=== PATIENT | male | born 1965 | race Caucasian/White ===

== ENCOUNTER 2018-10-13 04:55 | Inpatient (IN) | payer OTHER, SELFPAY ==
[~2018-10-13] VITALS: Ht 177.8 cm; Wt 70.8 kg
[2018-10-13] VITALS (7 sets, daily range): BP systolic 100–113; BP diastolic 17–66
[2018-10-13 05:33] LABS: BASO # 0.1 10^3/uL (0.0-0.2); BASO % 1.3 % (0.0-1.0); EOS # 0.3 10^3/uL (0.0-0.50); EOS % 2.5 % (0.0-3.0); HEMATOCRIT 37.3 % (42.0-52.0); HEMOGLOBIN 12.7 g/dl (13.5-17.5); LYMPH # 1.1 10^3/uL (1.5-4.5); LYMPH % 11.3 % (24.0-44.0); MEAN CORPUSCULAR HEMOGLOBIN 31.1 pg (27.0-33.0); MEAN CORPUSCULAR VOLUME 91.2 fl (80.0-96.0); MONO # 0.6 10^3/uL (0.0-0.8); MONO % 5.9 % (0.0-5.0); NEUTROPHILS # 7.9 10^3/uL (1.8-7.7); NEUTROPHILS % 78.4 % (36.0-66.0); PLATELET COUNT, AUTOMATED 268 10^3/uL (150-450); RED BLOOD COUNT 4.09 10^6/uL (4.30-6.10); WHITE BLOOD COUNT 10.1 10^3/uL (4.0-10.0)
[2018-10-13 05:43] LABS: INR 1.31; PROTHROMBIN TIME 16.5 SECONDS (12.1-14.4)
[2018-10-13 05:44] LABS: PARTIAL THROMBOPLASTIN TIME 35.2 SECONDS (25.4-37.6)
[2018-10-13 05:53] LABS: ALBUMIN 2.7 GM/DL (3.2-5.2); BILIRUBIN,DIRECT 1.2 MG/DL (0.0-0.2); BILIRUBIN,TOTAL 2.3 MG/DL (0.2-1.0); CALCIUM LEVEL 8.9 MG/DL (8.5-10.1); CREATININE FOR GFR 1.53 MG/DL (0.70-1.30); ETHYL ALCOHOL (ETHANOL) 0.004 % (0.000-0.010); GLOMERULAR FILTRATION RATE 50.9 (>56); POTASSIUM SERUM 3.8 MEQ/L (3.5-5.1); TOTAL PROTEIN 9.7 GM/DL (6.4-8.2)
[2018-10-13] MEDS ORDERED: FOLI400T PO (06:25)
[2018-10-13] MEDS ORDERED: B-COTAB25 PO (06:30)
[2018-10-13] MEDS ORDERED: LACT10SO29 PO (06:46)
[2018-10-13] MEDS ORDERED: ISOVUE-370 76% 100ML VIAL (Q9967) As Ordered ONE (08:59)
[2018-10-13] MEDS ORDERED: NS 1,000 ML IV ONE ×2 (09:00→10:45)
[2018-10-13] MEDS ORDERED: MORPHINE 4 MG/ML 1ML VIAL/SYRINGE (J2270) IV ONE (09:00)
[2018-10-13] MEDS: FUROSEMIDE 20 MG TAB PO SCH (09:00)
[2018-10-13] MEDS: SPIRONOLACTONE 50 MG TAB PO SCH (09:00)
[2018-10-13 09:35] LABS: CPK CREATINE PHOSPHOKINASE 178 U/L (39-308); LDH LACTATE DEHYDROGENASE 199 U/L (87-241); MB/CK RELATIVE INDEX 0.96 (< OR =4); TROPONIN I < 0.02 NG/ML (< 0.10)
--- NOTE | 2018-10-13 10:31 | REP ---
CT ABDOMEN AND PELVIS WITH IV CONTRAST: TECHNIQUE: Axial contrast enhanced images from the lung bases to the pubic symphysis using 100 mL Isovue 370 intravenous contrast material with multiplanar reformations. The visualized lung bases demonstrate dependant atelectatic changes. The liver demonstrates a large mass in the left lobe approximately 7 cm in diameter. There is mild splenomegaly. The adrenals and pancreas are grossly unremarkable. Kidneys appear unremarkable. There is no hydronephrosis. There is no abdominal aortic aneurysm. No significant periaortic adenopathy is seen. There is no free air. There is mild diffuse ascites in the abdomen and pelvis. There is an umbilical hernia which contains ab obstructed small bowel loops with moderately dilated small bowel proximally and collapsed small bowel loops distally. There is also a small amount of ascites fluid in the hernia. There is a right inguinal hernia containing ascites fluid with a communicating right hydrocele which is moderate in size. There is diffuse diverticulosis of the colon. Gallstones are seen in a moderately distended gallbladder. I do not see evidence of biliary dilatation. Urinary bladder is grossly unremarkable. There is no evidence of a appendicitis. IMPRESSION: Umbilical hernia contains an obstructed small bowel loop and a small amount of ascites fluid. There is a right inguinal hernia containing ascites fluid with a communicating moderate right hydrocele. Mild diffuse ascites. A liver mass measures 7 cm in maximum diameter, located in the left lobe. Gallstones in a moderately distended gallbladder with no definite biliary dilatation. Electronically Signed by Austin Peter MD 10/13/2018 07:45 P
[2018-10-13 10:35] LABS: MAGNESIUM LEVEL 1.5 MG/DL (1.8-2.4)
[2018-10-13] MEDS ORDERED: ROCURONIUM BROMIDE 50 MG/5 ML VIAL As Ordered ONE (11:32)
[2018-10-13] MEDS ORDERED: LIDOCAINE 2% INJ 100 MG/5 ML SDV (FOR ANES.) As Ordered ONE (11:32)
[2018-10-13] MEDS ORDERED: PROPOFOL 200 MG/20 ML VIAL As Ordered ONE (11:32)
[2018-10-13] MEDS ORDERED: ONDANSETRON 4MG/2ML VIAL (J2405) As Ordered ONE (11:33)
[2018-10-13] MEDS ORDERED: fentaNYL 100 MCG/2 ML INJECTION (J3010) As Ordered ONE (11:33)
[2018-10-13] MEDS ORDERED: dexameTHASONE 4 MG/ML 1ML VIAL (J1100) As Ordered ONE (11:33)
[2018-10-13] MEDS ORDERED: MIDAZOLAM INJ 2 MG/2 ML VIAL (J2250) As Ordered ONE (11:34)
[2018-10-13] MEDS ORDERED: MAG SULF 1GM/100ML (MAG RUN) 1 GM in APPROPRIATE DILUENT 1 EA IV SCH (11:45)
[2018-10-13] MEDS ORDERED: MULTCAP PO (11:47)
[2018-10-13] MEDS ORDERED: SPIR50TA4 PO (11:47)
[2018-10-13] MEDS ORDERED: FURO20TA2 PO (11:47)
[2018-10-13] MEDS ORDERED: FOLI1TAB11 PO (11:47)
--- NOTE | 2018-10-13 12:09 | HPEPDOC ---
[facility] Medical History & Physical History and Physical DATE OF CONSULTATION 10/13/2018 CONSULT FOR: General surgery PCP at [facility] in [facility] REASON FOR CONSULT: Medical management HISTORY OF PRESENT ILLNESS: Patient is a 53-year-old man with a history of known hepatocellular carcinoma with a large left liver lobe mass which is currently undergoing treatment at [facility] in [place]. He also has a known history of alcoholic liver cirrhosis. As well as known to hernias one umbilical and one right inguinal. The patient tells me that he was in his usual state of health living up here in [facility] during the summer when yesterday around 5 PM he began to have significant abdominal pain. Associated with nausea and vomiting no diarrhea no fevers or chills. He tells me that normally when he lies flat hernia disappears however since that time it is not and is actually quite swollen and tender. The patient describes good exercise tolerance no shortness of breath rash-like symptoms with strenuous activity he is very active. Otherwi se patient denies weight loss, hair loss, headache, visual changes, chest pain, shortness of breath, cough, muscle aches, worsening arthritis, change in mood. PAST MEDICAL HISTORY: 1. Hepatocellular carcinoma. 2. Alcoholic liver cirrhosis. 3. History of alcohol abuse 4. Gastroesophageal reflux disease. HOME MEDICATIONS: Please see below. ALLERGIES: Please see below PAST SURGICAL HISTORY: 1. Patient describes what sounds like a Shilpi fundoplication for problems with his GE sphincter one half years ago. 2. Chemoembolization of left liver lobe hepatocellular carcinoma this past July.. SOCIAL HISTORY: Lives with: Alone, Employment: Not currently working, Tobacco use: [id number] history in the past not an active smoker. ETOH: And no alcohol intake for 3 months, Illicit drug use: Denies, Tattoos done unprofessionally: Denies. IV drug use: Denies CODE STATUS: Full code FAMILY HISTORY:Reviewed and noncontributory REVIEW OF SYSTEMS: 10 systems reviewed and negative other than HPI PHYSICAL EXAMINATION: VITAL SIGNS: Temperature 96 7, pulse 79, respiratory rate 16, blood pressure 125/72, pulse oximetry 97 % on room air. GENERAL: Pleasant Slim man laying in bed awake alert oriented speaking in complete sentences no acute distress HEENT: Moist mucous membranes no elevation and CVP CARDIOVASCULAR: S1 S2 regular no additional heart sounds appreciated. RESPIRATORY: Clear to auscultation bilaterally. ABDOMINAL: Bowel sounds diminished, abdomen soft 8 x 6 cm umbilical mass erythematous diffusely tender, and tense EXTREMITIES: No clubbing cyanosis or edema NEUROLOGICAL: Spontaneously moves all 4 extremities cranial 2 through 12 grossly intact no gross focal deficits appreciated PSYCHOLOGICAL: Appropriate LABORATORY DATA: See below. MICROBIOLOGY: Please see below. IMAGING: CT abdomen: Umbilical hernia contains an obstructed small bowel loop and a small amount of ascites fluid. There is a right inguinal hernia containing ascites fluid with a communicating moderate right hydrocele. Mild diffuse ascites. The liver mass measures 7 cm in maximum diameter, located in the left lobe. Gallstones in a moderately distended gallbladder with no definite biliary dilatation. ASSESSMENT & PLAN: 53-year-old man with history of alcoholic liver cirrhosis and hepatocellular carcinoma presenting now with an incarcerated umbilical hernia resulting in small bowel obstruction . PROBLEMS: 1. Incarcerated umbilical hernia resulting in small bowel reduction: The patient has been seen and evaluated by general surgery for planning for operative procedure later today. He is currently nothing by mouth patient has had this hernia for quite some time and is unclear why it is becoming a problem at this point time it could be possible is related to his malignancy however it may not be. Given the urgency of the procedure and his lack of cardiac risk factors see no further testing indicated prior to proceeding with operative procedure. 2.Alcoholic liver cirrhosis: Not actively drinking continue with folic acid thiamine and a multivitamin as able, if he is nothing by mouth he is not exposed medications urgently. We'll monitor fluid status closely for now would hold spi ronolactone and furosemide restarted as needed or as. This is likely etiology for his mildly elevated INR. Today his meld score is 19 indicating 6% estimated 3 month mortality. In July his child schmid is 9B abdominal surgery mehreen- operative mortality 30%. Discriminate factor 17.9 no indication for gl ucocorticoids. 3. Gastroesophageal reflux disease: Recommend IV PPI while nothing by mouth 4.Hepatocellular carcinoma: We'll require outpatient follow-up and he did have chemoembolization approximately 2 months ago the tumor does not appear to have shrunk in size he told me that it was 6 cm at that time today and appears to be 7 cm I suspect he would benefit from oncology referral through [facility] and close follow-up there where he lives 5. Hypomagnesemia: We'll replete IV 6. Abnormal creatinine: I suspect that his acute kidney injury related to his acute presentation, however we have no prior lab values to compare to we'll request records from [facility] DVT PROPHYLAXIS: As per general surgery Thank you for this and did consult will continue to follow along with you closely please call with any specific questions Vital Signs Vital Signs Date Time Temp Pulse Resp B/P (MAP) Pulse Ox O2 Delivery O2 Flow Rate FiO2 10/13/18 11:30 98.2 16 117/75 (89) Room Air 10/13/18 11:25 70 94 Laboratory Data Labs 24H Laboratory Tests 2 10/13/18 05:19: Prothrombin Time 16.5H, Prothromb Time International Ratio 1.31, Activated Partial Thromboplast Time 35.2, Anion Gap 9, Glomerular Filtration Rate 50.9L, Calcium Level 8.9, Aspartate Amino Transf (AST/SGOT) 85H, Alanine Aminotransfer ase (ALT/SGPT) 40, Alkaline Phosphatase 174H, Total Bilirubin 2.3H, Direct Bilirubin 1.2H, Ammonia 38H, Total Protein 9.7H, Albumin 2.7L, Albumin/Globulin Ratio 0.39L, Amylase Level 97, Lipase 319, Ethyl Alcohol Level 0.004 10/13/18 05:20: Immature Granulocyte % (Auto) 0.6, White Blood Count 10.1H, Red Blood Count 4.09L, Hemoglobin 12.7L, Hematocrit 37.3L, Mean Corpuscular Volume 91.2, Mean Corpuscular Hemoglobin 31.1, Mean Corpuscular Hemoglobin Concent 34.0, Red Cell Distribution Width 14.2, Platelet Count 268, Neutrophils (%) (Auto) 78.4H, Lymphocytes (%) (Auto) 11.3L, Monocytes (%) (Auto) 5.9H, Eosinophils (%) (Auto) 2.5, Basophils (%) (Auto) 1.3H, Neutrophils # (Auto) 7.9H, Lymphocytes # (Auto) 1.1L, Monocytes # (Auto) 0.6, Eosinophils # (Auto) 0.3, Basophils # (Auto) 0.1, Nucleated Red Blood Cells % (auto) 0.0 10/13/18 08:54: Magnesium Level 1.5L, Lactate Dehydrogenase 199, Total Creatine Kinase 178, Creatine Kinase MB 2.0, Creatine Kinase MB Relative Index 0.96, Troponin I < 0.02 CBC/BMP Laboratory Tests 10/13/18 05:19 10/13/18 05:20 Red Blood Count 4.09 L, Mean Corpuscular Volume 91.2, Mean Corpuscular Hemoglo bin 31.1, Mean Corpuscular Hemoglobin Concent 34.0, Red Cell Distribution Width 14.2, Neutrophils (%) (Auto) 78.4 H, Lymphocytes (%) (Auto) 11.3 L, Monocytes (%) (Auto) 5.9 H, Eosinophils (%) (Auto) 2.5, Basophils (%) (Auto) 1.3 H, Neutrophils # (Auto) 7.9 H, Lymphocytes # (Auto) 1.1 L, Monocytes # (Auto) 0.6, Eosinophils # (Auto) 0.3, Basophils # (Auto) 0.1 Home Medications Scheduled B1/B2/Niacin/B12/Protease (B-Complex with B-12 Tablet) 1 Each Tablet, 1 TAB PO DAILY Folic Acid (Folic Acid) 1 Mg Tablet, 1 MG PO DAILY Furosemide (Furosemide) 20 Mg Tablet, 40 MG PO DAILY Lactulose (Lactulose) 10 Gm/15 Ml Solution, 30 ML PO BID Multivitamin (Multivitamins) 1 Each Capsule, 1 CAP PO DAILY Spironolactone (Spironolactone) 50 Mg Tablet, 100 MG PO DAILY Allergies Coded Allergies: Penicillins (Verified Allergy, Unknown, 10/13/18) A-FIB/CHADSVASC A-FIB History Current/History of A-Fib/PAF?: CHAGO Williamson MD October 13, 2018 12:09
[2018-10-13] MEDS ORDERED: LevoFLOXacin(LEVAQUIN)500 MG/100 ML BAG (J1956) As Ordered ONE (13:01)
[2018-10-13] MEDS ORDERED: SUGAMMADEX SODIUM 500 MG/5 ML VIAL (BRIDION) As Ordered ONE (14:18)
[2018-10-13] MEDS ORDERED: ONDANSETRON 4MG/2ML VIAL (J2405) IV PRN ×2 (15:00→15:15)
[2018-10-13] MEDS ORDERED: KETOROLAC 30 MG/ML VIAL (J1885) IV PRN (15:00)
[2018-10-13] MEDS ORDERED: fentaNYL 100 MCG/2 ML INJECTION (J3010) IV PRN (15:15)
[2018-10-13] MEDS ORDERED: METOCLOPRAMIDE INJ 10MG/2ML VIAL (J2765) IV PRN (15:15)
[2018-10-13] MEDS ORDERED: MEPERIDINE INJ 25 MG/ML VIAL (J2175) IV PRN (15:15)
[2018-10-13] MEDS ORDERED: LR 1,000 ML IV SCH (15:15)
[2018-10-13] MEDS ORDERED: PERCOCET 5MG/325MG TAB PO PRN (15:15)
[2018-10-13] MEDS ORDERED: PERCOCET 5MG/325MG TAB As Ordered ONE (15:54)
[2018-10-13] MEDS: PERCOCET 5MG/325MG TAB PO PRN ×2 (15:55→21:59)
[2018-10-13] MEDS: LR 1,000 ML IV SCH (16:15)
[2018-10-13] MEDS: FOLIC ACID 1 MG TAB PO SCH (16:52)
[2018-10-13] MEDS: MAG SULF 1GM/100ML (MAG RUN) 1 GM in APPROPRIATE DILUENT 1 EA IV SCH ×2 (16:53→17:49)
[2018-10-13] MEDS: LACTULOSE 20 GM/30 ML SYRUP UD PO SCH (21:22)
[2018-10-13] MEDS: MORPHINE 4 MG/ML 1ML VIAL/SYRINGE (J2270) IV PRN (22:56)
--- NOTE | 2018-10-13 23:37 | ECGEPIP ---
Stationary ECG Study 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
--- NOTE | 2018-10-13 23:41 | ECGEPIP ---
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
[2018-10-14] MEDS: LR 1,000 ML IV SCH ×2 (03:27→14:30)
[2018-10-14 04:00] VITALS: BP 106/61
[2018-10-14 06:06] LABS: BASO % 0.2 % (0.0-1.0); EOS % 0.1 % (0.0-3.0); HEMATOCRIT 30.6 % (42.0-52.0); LYMPH # 0.8 10^3/uL (1.5-4.5); LYMPH % 4.6 % (24.0-44.0); MEAN CORPUSCULAR HEMOGLOBIN 31.5 pg (27.0-33.0); MEAN CORPUSCULAR HGB CONC 33.7 g/dl (32.0-36.5); MEAN CORPUSCULAR VOLUME 93.6 fl (80.0-96.0); MONO # 0.4 10^3/uL (0.0-0.8); MONO % 2.5 % (0.0-5.0); NEUTROPHILS # 14.9 10^3/uL (1.8-7.7); PLATELET COUNT, AUTOMATED 202 10^3/uL (150-450); RED BLOOD COUNT 3.27 10^6/uL (4.30-6.10); WHITE BLOOD COUNT 16.2 10^3/uL (4.0-10.0)
[2018-10-14 06:13] LABS: HEMOGLOBIN 10.3 g/dl (13.5-17.5)
[2018-10-14 06:19] LABS: INR 1.5; PROTHROMBIN TIME 18.4 SECONDS (12.1-14.4)
[2018-10-14 07:51] LABS: ALBUMIN 2.2 GM/DL (3.2-5.2); BILIRUBIN,TOTAL 2.4 MG/DL (0.2-1.0); CALCIUM LEVEL 8.2 MG/DL (8.5-10.1); CREATININE FOR GFR 2.01 MG/DL (0.70-1.30); GLOMERULAR FILTRATION RATE 37.2 (>56); TOTAL PROTEIN 7.4 GM/DL (6.4-8.2)
[2018-10-14 08:00] VITALS: BP 113/59
[2018-10-14] MEDS ORDERED: ACETAMINOPHEN TAB 650MG DOSE (2X325MG) PO PRN (08:00)
--- NOTE | 2018-10-14 08:02 | ROOPDOC ---
[facility] Report Of Operation Report of Operation DATE OF PROCEDURE: 10/13/18 PREPROCEDURE DIAGNOSES: incarcerated umbilical hernia, liver cirrhosis, liver cancer. POSTPROCEDURE DIAGNOSES: Strangulated bowel within an incarcerated umbilical hernia, liver cirrhosis, liver cancer. PROCEDURE: Exploratory laparotomy, small bowel resection with anastomosis, repair of umbilical hernia. SURGEON: Beto Box MD [employer] ARCHITECT: MD Dr. Raul Reddy assisted me during the surgery providing retraction for adequate visualization and was present throughout the whole case ANESTHESIA: General anesthesia. ESTIMATED BLOOD LOSS: Approximately 100 mL. COMPLICATIONS: None patient did relatively well remaining hemodynamically stab le. REMARKS: 53-year-old male with long-standing umbilical hernia previously not deemed a surgical candidate given presence of liver cirrhosis with ascites as well as a liver mass probably hepatocellular carcinoma presents to the emergency room with roughly about 15 hours of incarceration of his umbilical hernia with increasing pain. PROCEDURE NOTE: Purplish ischemic loop of bowel incarcerated within the umbilical hernia. Large amount of serous ascites within the hernia sac as well as within the abdomen. No gross perforation.. DESCRIPTION OF PROCEDURE: Patient was given a dose of levaquin 500 mg IV in the emergency room for p ossibility of bowel strangulation as well as prophylactic antibiotic.. He is brought to the operating room, placed supine on the table. Sequential Compression boots placed on both lower extremities for DVT prophylaxis. A Armstrong catheter placed for urine output monitoring. His abdomen was then prepped and draped widely in usual sterile fashion.We paused for a surgical timeout using both pre-incision safety checklist to verify correct patient, procedure site and additional clinical information prior to beginning the procedure. He has about a 5 cm protrusion of skin around his umbilicus which is tensely distended slightly hyperemic. He is abdomen likewise is moderately distended in appearance. Anesthesia requested attempt at placement of a nasogastric tube to address the bowel obstruction but wasn't able to pass it beyond the throat and was going out through his mouth. I made a vertical incision and compressing the site of the bulging around the umbilicus and a few centimeters below and above this. He slowly got down through to the hernia sac and entering the hernia sac I encountered clear yellow serous fluid draining out. The hernia sac was fully opened exposing a dusky purple loop of small bowel roughly about 8-10 cm in length remaining incarcerated and appearing strangulated on a tight opening of his umbilical hernia. I enlarged the fascial opening able to free up the small bowel and pull some more length. Immediately after the loop of small bowel that is strangulated the bowels were decompressed which points to a complete obstruction at this site. As I opened up the abdomen, I got out roughly about a liter of yellow serous ascites to further decompress his abdominal wall. The incisions were protected with towels. The bowels were aligned beyond the area of obstruction and were held in alignment with 3-0 silk sutures. I made an enterotomy in both sides and created a [id number] anastomosis with a blue load of 75 mm ANNEMARIE linear stapler. The mesentery of the involved bowel was divided in between hemostats and tied off. The enterotomy was then closed with another load of the 75 mm ANNEMARIE stapler fired transversely. The mesenteric defect that was created was closed with a intermittent placement of 2-0 Vicryl. The site of anastomosis seems healthy and the size of the anastomosis seems adequate for his small bowel. I inspected for any bleeding sites or sites that needed to be reinforced. Once satisfied I returned this to the abdomen and further drained a few 100 more ascites. I dissected the peritoneum and posterior fascia to create a flap and closed this with 2-0 Vicryl hoping to prevent leakage of the ascites. I chose not to place a mesh given the need for bowel resection. The subcutaneous tissue overlying the fascial opening was dissected away to release of the tension in the closure of the fascial opening of the hernia and this was closed using one PDS in a mattress fashion. The subcutaneous tissue was irrigated and checked for hemostasis and the skin was closed in layers using 3-0 Vicryl to close the subcutaneous tissue and 4-0 nylon run subcuticularly to close the skin. I chose to place prevena foam dressing with constant suction to help fully drain out any ascites leaking from the incision and allow it to close. Patient tolerated the procedure well. He remained hemodynamically stable throughout the procedure. He was subsequently awakened, extubated and returned to the recovery room in a stable condition. BETO BOX MD October 14, 2018 08:02
[2018-10-14] MEDS: PANTOPRAZOLE 40MG INJ (PROTONIX) (C9113) IV SCH (09:23)
[2018-10-14] MEDS: LACTULOSE 20 GM/30 ML SYRUP UD PO SCH ×2 (09:23→19:38)
[2018-10-14] MEDS: SPIRONOLACTONE 50 MG TAB PO SCH (09:24)
[2018-10-14] MEDS: FUROSEMIDE 20 MG TAB PO SCH (09:24)
[2018-10-14] MEDS: PERCOCET 5MG/325MG TAB PO PRN ×3 (09:25→19:48)
[2018-10-14] MEDS: ENOXAPARIN 40 MG/0.4 ML SYRINGE (J1650) SC SCH (09:25)
[2018-10-14] MEDS: FOLIC ACID 1 MG TAB PO SCH (09:25)
--- NOTE | 2018-10-14 10:26 | IPNPDOC ---
Subjective Date Seen The patient was seen on 10/14/18. Subjective Chief Complaint/HPI Bed at the surgical site. No other complaints General: Denies: ROS Unobtainable, Chills, Night Sweats, Fatigue, Malaise, No rmal Appetite, Other Symptoms Constitutional: Denies: Chills, Fever, Malaise, Night Sweats, Weakness, Fatigue, Weight Loss, Lethargy, Other Eyes: Denies: Pain, Vision change, Conjunctivae inflammation, Eyelid inflammation, Redness, Other ENT: Denies: Head Aches, Ear Pain, Dysphagia, Sinus Congestion, Post Nasal Drip, Sore Throat, Epistaxis, Other Symptoms Skin: Denies: Rash, Lesions, Jaundice, Bruising, Itching, Dry, Breakdown, Nail Changes, Other Pulmonary: Denies: Dyspnea, Cough, Pleuritic Chest Pain, Other Symptoms Cardiovascular: Denies: Chest Pain, Palpitations, Orthopnea, Paroxysmal Noc. Dyspnea, Edema, Lt Headedness, Other Symptoms Gastrointestinal: Denies: Nausea, Vomiting, Abdominal Pain, Diarrhea, Constipation, Melena, Hematochezia, Other Symptoms Genitourinary: Denies: Dysuria, Frequency, Incontinence, Hematuria, Retention, Other Symptoms Hematologic: Denies: Bruising, Bleeding Excessively, Petecchia, Purpura, Enlarged Lymph Nodes, Other Hematologic Endocrine: Denies: Polydipsia, Polyphagia, Polyuria, Heat Intolerance, Cold Intolerance, Other Endocrine Sx Musculoskeletal: Denies: Neck Pain, Back Pain, Shoulder Pain, Arm Pain, Hand Pain, Leg Pain, Foot Pain, Joint Pain, Muscle Pain, Spasms, Other Symptoms Neurological: Denies: Weakness, Numbness, Incoordination, Change in speech, Confusion, Seizures, Other Symptoms Psych: Denies: Mood Normal, Anxiety, Depression, Memory Issues, Thoughts of Self Harm, Anger, Thoughts of Harming Other, Other Psych Objective Physical Examination General Exam: Positive: Alert Eye Exam: Positive: Conjunctiva & lids normal ENT Exam: Positive: Atraumatic, Mucous membr. moist/pink Neck Exam: Positive: Supple Chest Exam: Positive: Clear to auscultation, Normal air movement Heart Exam: Positive: Rate Normal, Normal S1, Normal S2 Abdomen Exam: Positive: Normal bowel sounds Skin Exam: Positive: Nl turgor and temperature Neuro Exam: Positive: Normal Gait, Normal Speech Psych Exam: Positive: Mental status NL A-FIB/CHADSVASC A-FIB History Current/History of A-Fib/PAF?: No Assessment /Plan Problems (1) Strangulated hernia of abdominal wall Problem Text: Status post resection of the ischemic herniated Followed by Dr. Good appreciated Pain management PT, OT eval diet as per surgery Plan/VTE VTE Prophylaxis Ordered?: Yes VS, I&O, 24H, Fishbone Vital Signs/I&O Vital Signs Date Time Temp Pulse Resp B/P (MAP) Pulse Ox O2 Delivery O2 Flow Rate FiO2 10/14/18 09:25 18 10/14/18 08:00 101.0 10/14/18 04:00 80 106/61 (76) 94 10/13/18 20:00 2.0 10/13/18 11:30 Room Air I&O- Last 24 Hours up to 6 AM 10/14/18 05:59 Intake Total 2750 ml Output Total 350 ml Balance 2400 ml Laboratory Data 24H LABS Laboratory Tests 2 10/13/18 12:26: Urine Color YELLOW, Urine Appearance CLEAR, Urine pH 5.0, Urine Specific [place] 1.028, Urine Protein 1+H, Urine Glucose (UA) NEGATIVE, Urine Ketones NEGATIVE, Urine Blood 3+H, Urine Nitrite NEGATIVE, Urine Bilirubin NEGATIVE, Urine Urobilinogen 2.0H, Urine Leukocyte Esterase NEGATIVE, Urine WBC (Auto) 4H, Urine RBC (Auto) 51H, Urine Hyaline Casts (Auto) 0, Urine Bacteria (Auto) NEGATIVE, Urine Squamous Epithelial Cells 0, Urine Amorphous Sediment SMALLH, Urine Sperm (Auto) 10/14/18 05:19: Immature Granulocyte % (Auto) 0.6, White Blood Count 16.2H, Red Blood Count 3.27L, Hemoglobin 10.3#L, Hematocrit 30.6L, Mean Corpuscular Volume 93.6, Mean Corpuscular Hemoglobin 31.5, Mean Corpuscular Hemoglobin Concent 33.7, Red Cell Distribution Width 14.4, Platelet Count 202, Neutrophils (%) (Auto) 92.0H, Lymphocytes (%) (Auto) 4.6L, Monocytes (%) (Auto) 2.5, Eosinophils (%) (Auto) 0.1, Basophils (%) (Auto) 0.2, Neutrophils # (Auto) 14.9H, Lymphocytes # (Auto) 0.8L, Monocytes # (Auto) 0.4, Eosinophils # (Auto) 0.0, Basophils # (Auto) 0.0, Nucleated Red Blood Cells % (auto) 0.0, Prothrombin Time 18.4H, Prothromb Time International Ratio 1.50, Anion Gap 11, Glomerular Filtration Rate 37.2L, Blood Urea Nitrogen 27H, Creatinine 2.01H, Sodium Level 135L, Potassium Level 4.0, Chloride Level 101, Carbon Dioxide Level 23, Calcium Level 8.2L, Aspartate Amino Transf (AST/SGOT) 57H, Alanine Aminotransferase (ALT/SGPT) 32, Alkaline Phosphatase 110, Total Bilirubin 2.4H, Total Protein 7.4#, Albumin 2.2L, Ammonia 86H, Albumin/Globulin Ratio 0.42L CBC/BMP Laboratory Tests 10/14/18 05:19 Red Blood Count 3.27 L, Mean Corpuscular Volume 93.6, Mean Corpuscular Hemoglobin 31.5, Mean Corpuscular Hemoglobin Concent 33.7, Red Cell Distribution Width 14.4, Neutrophils (%) (Auto) 92.0 H, Lymphocytes (%) (Auto) 4.6 L, Monocytes (%) (Auto) 2.5, Eosinophils (%) (Auto) 0.1, Basophils (%) (Auto) 0.2, Neutrophils # (Auto) 14.9 H, Lymphocytes # (Auto) 0.8 L, Monocytes # (Auto) 0.4, Eosinophils # (Auto) 0.0, Basophils # (Auto) 0.0, Calcium Level 8.2 L, Aspartate Amino Transf (AST/SGOT) 57 H, Alanine Aminotransferase (ALT/SGPT) 32, Alkaline Phosphatase 110, Total Bilirubin 2.4 H, Total Protein 7.4 #, Albumin 2.2 L TONY LEYVA MD October 14, 2018 10:26
[2018-10-14 12:00] VITALS: BP 102/58
[2018-10-14 16:00] VITALS: BP 110/65
[2018-10-14] MEDS: MORPHINE 4 MG/ML 1ML VIAL/SYRINGE (J2270) IV PRN ×2 (17:30→23:42)
[2018-10-14 23:59] VITALS: BP 96/54
[2018-10-15] MEDS: LR 1,000 ML IV SCH (00:41)
[2018-10-15 04:00] VITALS: BP 100/58
[2018-10-15] MEDS: PERCOCET 5MG/325MG TAB PO PRN ×2 (05:31→18:26)
[2018-10-15 05:41] LABS: BASO # 0.1 10^3/uL (0.0-0.2); BASO % 0.4 % (0.0-1.0); EOS # 0.3 10^3/uL (0.0-0.50); HEMATOCRIT 29.5 % (42.0-52.0); HEMOGLOBIN 9.9 g/dl (13.5-17.5); LYMPH % 7.2 % (24.0-44.0); MEAN CORPUSCULAR HEMOGLOBIN 30.7 pg (27.0-33.0); MEAN CORPUSCULAR HGB CONC 33.6 g/dl (32.0-36.5); MEAN CORPUSCULAR VOLUME 91.3 fl (80.0-96.0); MONO # 1.1 10^3/uL (0.0-0.8); MONO % 7.4 % (0.0-5.0); NEUTROPHILS # 11.8 10^3/uL (1.8-7.7); NEUTROPHILS % 82.4 % (36.0-66.0); PLATELET COUNT, AUTOMATED 167 10^3/uL (150-450); RED BLOOD COUNT 3.23 10^6/uL (4.30-6.10); WHITE BLOOD COUNT 14.3 10^3/uL (4.0-10.0)
[2018-10-15 06:05] LABS: ALBUMIN 2.1 GM/DL (3.2-5.2); BILIRUBIN,TOTAL 1.8 MG/DL (0.2-1.0); CALCIUM LEVEL 7.8 MG/DL (8.5-10.1); CREATININE FOR GFR 2.53 MG/DL (0.70-1.30); GLOMERULAR FILTRATION RATE 28.5 (>56); POTASSIUM SERUM 4.2 MEQ/L (3.5-5.1); TOTAL PROTEIN 7.2 GM/DL (6.4-8.2)
[2018-10-15 07:40] VITALS: BP 146/72
[2018-10-15 08:01] VITALS: BP 146/72
[2018-10-15] MEDS: PANTOPRAZOLE 40MG INJ (PROTONIX) (C9113) IV SCH (08:50)
[2018-10-15] MEDS: ENOXAPARIN 40 MG/0.4 ML SYRINGE (J1650) SC SCH (08:50)
[2018-10-15] MEDS: LACTULOSE 20 GM/30 ML SYRUP UD PO SCH ×2 (08:50→20:15)
[2018-10-15] MEDS: MORPHINE 4 MG/ML 1ML VIAL/SYRINGE (J2270) IV PRN ×2 (08:51→23:14)
[2018-10-15] MEDS: SPIRONOLACTONE 50 MG TAB PO SCH (08:52)
[2018-10-15] MEDS: FOLIC ACID 1 MG TAB PO SCH (08:52)
--- NOTE | 2018-10-15 10:26 | IPNPDOC ---
Subjective Date Seen The patient was seen on 10/15/18. Subjective Chief Complaint/HPI Patient is comfortable and offers no new complaints at the present time General: Denies: ROS Unobtainable, Chills, Night Sweats, Fatigue, Malaise, Normal Appetite, Other Symptoms Constitutional: Denies: Chills, Fever, Malaise, Night Sweats, Weakness, Fatigue, Weight Loss, Lethargy, Other Eyes: Denies: Pain, Vision change, Conjunctivae inflammation, Eyelid inflammation, Redness, Other ENT: Denies: Head Aches, Ear Pain, Dysphagia, Sinus Congestion, Post Nasal Drip, Sore Throat, Epistaxis, Other Symptoms Skin: Denies: Rash, Lesions, Jaundice, Bruising, Itching, Dry, Breakdown, Nail Changes, Other Pulmonary: Denies: Dyspnea, Cough, Pleuritic Chest Pain, Other Symptoms Cardiovascular: Denies: Chest Pain, Palpitations, Orthopnea, Paroxysmal Noc. Dyspnea, Edema, Lt Headedness, Other Symptoms Gastrointestinal: Denies: Nausea, Vomiting, Abdominal Pain, Diarrhea, Con stipation, Melena, Hematochezia, Other Symptoms Genitourinary: Denies: Dysuria, Frequency, Incontinence, Hematuria, Retention, Other Symptoms Hematologic: Denies: Bruising, Bleeding Excessively, Petecchia, Purpura, Enlarged Lymph Nodes, Other Hematologic Endocrine: Denies: Polydipsia, Polyphagia, Polyuria, Heat Intolerance, Cold Int olerance, Other Endocrine Sx Musculoskeletal: Denies: Neck Pain, Back Pain, Shoulder Pain, Arm Pain, Hand Pain, Leg Pain, Foot Pain, Joint Pain, Muscle Pain, Spasms, Other Symptoms Neurological: Denies: Weakness, Numbness, Incoordination, Change in speech, Confusion, Seizures, Other Symptoms Objective Physical Examination General Exam: Positive: Alert Eye Exam: Positive: Conjunctiva & lids normal ENT Exam: Positive: Atraumatic, Mucous membr. moist/pink Neck Exam: Positive: Supple Chest Exam: Positive: Clear to auscultation, Normal air movement Heart Exam: Positive: Rate Normal, Normal S1, Normal S2 Abdomen Exam: Positive: Normal bowel sounds Skin Exam: Positive: Nl turgor and temperature Neuro Exam: Positive: Normal Gait, Normal Speech Psych Exam: Positive: Mental status NL A-FIB/CHADSVASC A-FIB History Current/History of A-Fib/PAF?: No Assessment /Plan Problems (1) Strangulated hernia of abdominal wall Status: Resolved Problem Text: Status post resection of the ischemic herniated Followed by Dr. Good appreciated Pain management tolerating oral feeding PT, OT eval (2) BRET (acute kidney injury) Status: Acute Problem Text: Discontinue Toradol Decrease Lasix to 20 mg by mouth daily Continue IV fluids but change fluids to normal saline 800 mL per hour Repeat labs in a.m. Possible discharge in a.m. if cleared by surgery Plan/VTE VTE Prophylaxis Ordered?: Yes VS, I&O, 24H, Fishbone Vital Signs/I&O Vital Signs Date Time Temp Pulse Resp B/P (MAP) Pulse Ox O2 Delivery O2 Flow Rate FiO2 10/15/18 08:51 18 10/15/18 08:08 99.7 10/15/18 08:01 10/13/18 20:00 2.0 10/13/18 11:30 Room Air I&O- Last 24 Hours up to 6 AM 10/15/18 06:00 Intake Total 1850 ml Output Total 200 ml Balance 1650 ml Laboratory Data 24H LABS Laboratory Tests 2 10/15/18 05:25: Immature Granulocyte % (Auto) 0.6, White Blood Count 14.3H, Red Blood Count 3.23L, Hemoglobin 9.9L, Hematocrit 29.5L, Mean Corpuscular Volume 91.3, Mean Corpuscular Hemoglobin 30.7, Mean Corpuscular Hemoglobin Concent 33.6, Red Cell Distribution Width 14.4, Platelet Count 167, Neutrophils (%) (Auto) 82.4H, Lymphocytes (%) (Auto) 7.2L, Monocytes (%) (Auto) 7.4H, Eosinophils (%) (Auto) 2.0, Basophils (%) (Auto) 0.4, Neutrophils # (Auto) 11.8H, Lymphocytes # (Auto) 1.0L, Monocytes # (Auto) 1.1H, Eosinophils # (Auto) 0.3, Basophils # (Auto) 0.1, Nucleated Red Blood Cells % (auto) 0.0, Anion Gap 7L, Glomerular Filtration Rate 28.5L, Blood Urea Nitrogen 41#H, Creatinine 2.53H, Sodium Level 133L, Potassium Level 4.2, Chloride Level 101, Carbon Dioxide Level 25, Calcium Level 7.8L, Aspartate Amino Transf (AST/SGOT) 56H, Alanine Aminotransferase (ALT/SGPT) 29, Alkaline Phosphatase 106, Total Bilirubin 1.8H, Total Protein 7.2, Albumin 2.1L, Albumin/Globulin Ratio 0.41L CBC/BMP Laboratory Tests 10/15/18 05:25 Red Blood Count 3.23 L, Mean Corpuscular Volume 91.3, Mean Corpuscular Hemoglobin 30.7, Mean Corpuscular Hemoglobin Concent 33.6, Red Cell Distribution Width 14.4, Neutrophils (%) (Auto) 82.4 H, Lymphocytes (%) (Auto) 7.2 L, Monocytes (%) (Auto) 7.4 H, Eosinophils (%) (Auto) 2.0, Basophils (%) (Auto) 0.4, Neutrophils # (Auto) 11.8 H, Lymphocytes # (Auto) 1.0 L, Monocytes # (Auto) 1.1 H, Eosinophils # (Auto) 0.3, Basophils # (Auto) 0.1, Calcium Level 7.8 L, Aspartate Amino Transf (AST/SGOT) 56 H, Alanine Aminotransferase (ALT/SGPT) 29, Alkaline Phosphatase 106, Total Bilirubin 1.8 H, Total Protein 7.2, Albumin 2.1 L TONY LEYVA MD October 15, 2018 10:25
[2018-10-15] MEDS: FUROSEMIDE 20 MG TAB PO SCH (10:41)
[2018-10-15] MEDS: NS 1,000 ML IV SCH ×2 (10:42→20:15)
--- NOTE | 2018-10-15 11:20 | IPNPDOC ---
Subjective General Date/Time Seen The patient was seen on 10/15/18 at 11:12. Subject Chief Complaint/History The patient is a 53-year-old male admitted with a reason for visit of Incarcerated Umbilical Hernia. Patient reports he is feeling better, hungry. He is tolerating soft diet. Reports BMs. Had another febrile episode this am with chills. Denies abdominal discomfort, chest discomfort, shortness of breath. Current Medications Current Medications Current Medications Acetaminophen (Tylenol Tab) 650 mg Q4HP PRN PO PAIN OR FEVER; Start 10/14/18 at 08:00 Enoxaparin Sodium (Lovenox) 40 mg DAILY SC Last administered on 10/15/18at 08:50; Start 10/14/18 at 09:00 Fentanyl Citrate (Sublimaze) 25 mcg Q5MP PRN IV MODERATE PAIN (PS 4-7); Start 10/13/18 at 15:15; Stop 10/13/18 at 16:15; Status DC Folic Acid (Folic Acid) 1 mg DAILY PO Last administered on 10/15/18at 08:52; Start 10/13/18 at 09:00 Furosemide (Lasix) 20 mg DAILY PO Last administered on 10/15/18at 10:41; Start 10/15/18 at 09:00 Furosemide (Lasix) 40 mg DAILY PO Last administered on 10/14/18at 09:24; Start 10/13/18 at 09:00; Stop 10/15/18 at 10:17; Status DC Home Med (Med Rec Complete!) ASDIRECTED XX ; Start 10/13/18 at 12:00; Stop 10/13/18 at 12:00; Status DC Ketorolac Tromethamine (ToRADol) 30 mg Q6HP PRN IV MILD/MODERATE PAIN (PS 1-7) Last administered on 10/13/18at 19:27; Start 10/13/18 at 15:00; Stop 10/15/18 at 10:15; Status DC Lactated Ringer's 1,000 ml @ 100 mls/hr Q10H IV Last administered on 10/15/18at 00:41; Start 10/13/18 at 14:48; Stop 10/15/18 at 10:16; Status DC Lactated Ringer's 1,000 ml @ 100 mls/hr Q10H IV ; Start 10/13/18 at 15:15; Stop 10/13/18 at 16:15; Status DC Lactulose (Cephulac) 30 ml BID PO Last administered on 10/15/18at 08:50; Start 10/13/18 at 21:00 Magnesium Sulfate/ Dextrose 1 gm/IV Miscellaneous Supplies 100 ml @ 100 mls/hr ASDIRECTED IV ; Start 10/13/18 at 11:45; Stop 10/13/18 at 12:44; Status Cancel Magnesium Sulfate/ Dextrose 1 gm/IV Miscellaneous Supplies 100 ml @ 100 mls/hr Q1H IV Last administered on 10/13/18at 17:49; Start 10/13/18 at 14:15; Stop 10/13/18 at 16:14; Status DC Meperidine HCl (Demerol) 12.5 mg Q5MP PRN IV SHIVERING; Start 10/13/18 at 15:15; Stop 10/13/18 at 16:15; Status DC Metoclopramide HCl (REGLAN INJection) 10 mg Q6HP PRN IV NAUSEA OR VOMITING; Start 10/13/18 at 15:15; Stop 10/13/18 at 16:15; Status DC Morphine Sulfate (Morphine Sulfate Inj) 4 mg Q2HP PRN IV SEVERE PAIN (PS 8-10) Last administered on 10/15/18at 08:51; Start 10/13/18 at 15:00 Ondansetron HCl (ZOFRAN INJection) 4 mg Q4HP PRN IV NAUSEA OR VOMITING; Start 10/13/18 at 15:15; Stop 10/13/18 at 16:15; Status DC Ondansetron HCl (ZOFRAN INJection) 4 mg Q6HP PRN IV NAUSEA OR VOMITING; Start 10/13/18 at 15:00 Oxycodone/ Acetaminophen (Percocet 5mg/ 325mg Tablet) 1 tab ASDIRECTED PRN PO MILD/MODERATE PAIN (PS 1-7); Start 10/13/18 at 15:15; Stop 10/13/18 at 16:15; Status DC Oxycodone/ Acetaminophen (Percocet 5mg/ 325mg Tablet) 1 tab Q4HP PRN PO MODERATE PAIN (PS 5-7) Last administered on 10/13/18at 21:59; Start 10/13/18 at 1 5:00 Oxycodone/ Acetaminophen (Percocet 5mg/ 325mg Tablet) 2 tab Q6HP PRN PO SEVERE PAIN (PS 8-10) Last administered on 10/15/18at 05:31; Start 10/13/18 at 15:00 Pantoprazole Sodium (Protonix) 40 mg DAILY IV Last administered on 10/15/18 08:50; Start 10/14/18 at 09:00 Sodium Chloride 1,000 ml @ 100 mls/hr Q10H IV Last administered on 10/15/18at 10:42; Start 10/15/18 at 10:15 Spironolactone (Aldactone) 100 mg DAILY PO Last administered on 10/15/18 08:52; Start 10/13/18 at 09:00 Allergies Coded Allergies: Penicillins (Verified Allergy, Unknown, 10/13/18) Objective Physical Examination Examination GENERAL APPEARANCE:looks very comfortable. SKIN: Warm and moist. HEENT: Normocephalic, atraumatic. [place] palpebral conjunctiva, anicteric sclerae. Lips and mucosa appear moist. NECK: Supple, no thyromegaly. No obvious jugular venous distention. LUNGS: Clear to auscultation bilaterally. No wheezing appreciated. HEART: No chest wall abnormalities. Regular rate and rhythm with no murmurs appreciated. ABDOMEN: Abdomen is round, soft, increasing abdominal girth, nontender on palpation. prevena dressing on top of umbilical incision functioning - no noticeable drainage. EXTREMITIES: mild le edema. Vital Signs Vital Signs Date Time Temp Pulse Resp B/P (MAP) Pulse Ox O2 Delivery O2 Flow Rate FiO2 10/15/18 09:01 16 10/15/18 08:08 99.7 10/15/18 08:01 10/13/18 20:00 2.0 10/13/18 11:30 Room Air I&Os I&O- Last 24 Hours up to 6 AM 10/15/18 06:00 Intake Total 1850 ml Output Total 200 ml Balance 1650 ml Laboratory Data Labs 24H Laboratory Tests 2 10/15/18 05:25: Immature Granulocyte % (Auto) 0.6, White Blood Count 14.3H, Red Blood Count 3.23L, Hemoglobin 9.9L, Hematocrit 29.5L, Mean Corpuscular Volume 91.3, Mean Corpuscular Hemoglobin 30.7, Mean Corpuscular Hemoglobin Concent 33.6, Red Cell Distribution Width 14.4, Platelet Count 167, Neutrophils (%) (Auto) 82.4H, Lymphocytes (%) (Auto) 7.2L, Monocytes (%) (Auto) 7.4H, Eosinophils (%) (Auto) 2.0, Basophils (%) (Auto) 0.4, Neutrophils # (Auto) 11.8H, Lymphocytes # (Auto) 1.0L, Monocytes # (Auto) 1.1H, Eosinophils # (Auto) 0.3, Basophils # (Auto) 0.1, Nucleated Red Blood Cells % (auto) 0.0, Anion Gap 7L, Glomerular Filtration Rate 28.5L, Blood Urea Nitrogen 41#H, Creatinine 2.53H, Sodium Level 133L, Potassium Level 4.2, Chloride Level 101, Carbon Dioxide Level 25, Calcium Level 7.8L, Aspartate Amino Transf (AST/SGOT) 56H, Alanine Aminotransferase (ALT/SGPT) 29, Alkaline Phosphatase 106, Total Bilirubin 1.8H, Total Protein 7.2, Albumin 2.1L, Albumin/Globulin Ratio 0.41L CBC/BMP Laboratory Tests 10/15/18 05:25 Red Blood Count 3.23 L, Mean Corpuscular Volume 91.3, Mean Corpuscular Hemoglobin 30.7, Mean Corpuscular Hemoglobin Concent 33.6, Red Cell Distribution Width 14.4, Neutrophils (%) (Auto) 82.4 H, Lymphocytes (%) (Auto) 7.2 L, Monocytes (%) (Auto) 7.4 H, Eosinophils (%) (Auto) 2.0, Basophils (%) (Auto) 0 .4, Neutrophils # (Auto) 11.8 H, Lymphocytes # (Auto) 1.0 L, Monocytes # (Auto) 1.1 H, Eosinophils # (Auto) 0.3, Basophils # (Auto) 0.1, Calcium Level 7.8 L, Aspartate Amino Transf (AST/SGOT) 56 H, Alanine Aminotransferase (ALT/SGPT) 29, Alkaline Phosphatase 106, Total Bilirubin 1.8 H, Total Protein 7.2, Albumin 2.1 L Impression POD2 Stangulated umbilical hernia s/p bowel resection, primary repair of hernia liver cirrhosis with ascites liver mass (?HCC) elevated BUN/Cr from admission, nonoliguric ARF from surgical standpoint, over all doing well. Patient moving his bowels, denies any severe abdominal discomfort, nausea and has been moving his bowels. Advance to regular diet. He has prevena dressing to help accelerate skin closure and avoid ascites leak - so far not much leakage . he will continue with the current dressing until battery runs out or until 10 days after Three concerns at this point: 1. renal function in background of liver problems - meds have been adjusted by Dr. Herrera. 2. increasing abdominal girth -?increasing ascites - may need paracentesis. 3. intermittent febrile episodes - no signs of peritonitis. wbc trending down. continue with current antibiotics Continue DVT prophylaxis transfer to regular floors Plan / VTE VTE Prophylaxis Ordered?: Yes CLAUDIA RODRÍGUEZ MD October 15, 2018 11:20
[2018-10-15] MEDS ORDERED: HYDROCORTISONE 0.5% CREAM 30 GM TOP PRN (12:30)
[2018-10-15 16:40] VITALS: BP 140/72
[2018-10-15 20:00] VITALS: BP 122/61
[2018-10-15 23:59] VITALS: BP 132/79
[2018-10-16 05:03] LABS: BASO # 0.1 10^3/uL (0.0-0.2); BASO % 0.6 % (0.0-1.0); EOS # 0.4 10^3/uL (0.0-0.50); EOS % 4.1 % (0.0-3.0); HEMATOCRIT 28.1 % (42.0-52.0); HEMOGLOBIN 9.9 g/dl (13.5-17.5); LYMPH # 1.1 10^3/uL (1.5-4.5); LYMPH % 10.2 % (24.0-44.0); MEAN CORPUSCULAR HEMOGLOBIN 32.6 pg (27.0-33.0); MEAN CORPUSCULAR HGB CONC 35.2 g/dl (32.0-36.5); MEAN CORPUSCULAR VOLUME 92.4 fl (80.0-96.0); MONO # 1.2 10^3/uL (0.0-0.8); MONO % 11.3 % (0.0-5.0); NEUTROPHILS # 7.8 10^3/uL (1.8-7.7); NEUTROPHILS % 73.2 % (36.0-66.0); PLATELET COUNT, AUTOMATED 152 10^3/uL (150-450); RED BLOOD COUNT 3.04 10^6/uL (4.30-6.10); WHITE BLOOD COUNT 10.6 10^3/uL (4.0-10.0)
[2018-10-16 05:29] LABS: ALBUMIN 2.1 GM/DL (3.2-5.2); BILIRUBIN,TOTAL 1.9 MG/DL (0.2-1.0); CALCIUM LEVEL 7.7 MG/DL (8.5-10.1); CREATININE FOR GFR 2.62 MG/DL (0.70-1.30); GLOMERULAR FILTRATION RATE 27.4 (>56); POTASSIUM SERUM 4.2 MEQ/L (3.5-5.1); TOTAL PROTEIN 6.9 GM/DL (6.4-8.2)
[2018-10-16] MEDS: NS 1,000 ML IV SCH ×2 (06:23→15:23)
[2018-10-16 08:00] VITALS: BP 110/69
[2018-10-16] MEDS: LACTULOSE 20 GM/30 ML SYRUP UD PO SCH ×2 (08:18→20:25)
[2018-10-16] MEDS: ENOXAPARIN 40 MG/0.4 ML SYRINGE (J1650) SC SCH ×2 (08:18→08:29)
[2018-10-16] MEDS: FOLIC ACID 1 MG TAB PO SCH (08:19)
[2018-10-16] MEDS: FUROSEMIDE 20 MG TAB PO SCH (08:19)
[2018-10-16] MEDS: SPIRONOLACTONE 50 MG TAB PO SCH (08:19)
[2018-10-16 09:05] LABS: INR 1.38; PROTHROMBIN TIME 17.2 SECONDS (12.1-14.4)
[2018-10-16 09:10] VITALS: BP 125/77
--- NOTE | 2018-10-16 11:45 | IPNPDOC ---
Subjective Date Seen The patient was seen on 10/16/18. Subjective Chief Complaint/HPI Offers no new complaints at the present time. Renal function is still not improving and also noticed some ascites General: Denies: ROS Unobtainable, Chills, Night Sweats, Fatigue, Malaise, Normal Appetite, Other Symptoms Constitutional: Denies: Chills, Fever, Malaise, Night Sweats, Weakness, Fatigue, Weight Loss, Lethargy, Other Eyes: Denies: Pain, Vision change, Conjunctivae inflammation, Eyelid inflammation, Redness, Other ENT: Denies: Head Aches, Ear Pain, Dysphagia, Sinus Congestion, Post Nasal Drip, Sore Throat, Epistaxis, Other Symptoms Skin: Denies: Rash, Lesions, Jaundice, Bruising, Itching, Dry, Breakdown, Nail Changes, Other Pulmonary: Denies: Dyspnea, Cough, Pleuritic Chest Pain, Other Symptoms Cardiovascular: Denies: Chest Pain, Palpitations, Orthopnea, Paroxysmal Noc. Dyspnea, Edema, Lt Headedness, Other Symptoms Gastrointestinal: Reports: Other Symptoms Genitourinary: Denies: Dysuria, Frequency, Incontinence, Hematuria, Retention, Other Symptoms Hematologic: Denies: Bruising, Bleeding Excessively, Petecchia, Purpura, Enlarged Lymph Nodes, Other Hematologic Endocrine: Denies: Polydipsia, Polyphagia, Polyuria, Heat Intolerance, Cold Intolerance, Other Endocrine Sx Musculoskeletal: Denies: Neck Pain, Back Pain, Shoulder Pain, Arm Pain, Hand Pain, Leg Pain, Foot Pain, Joint Pain, Muscle Pain, Spasms, Other Symptoms Neurological: Denies: Weakness, Numbness, Incoordination, Change in speech, Confusion, Seizures, Other Symptoms Psych: Denies: Mood Normal, Anxiety, Depression, Memory Issues, Thoughts of Se lf Harm, Anger, Thoughts of Harming Other, Other Psych Objective Physical Examination General Exam: Positive: Alert Eye Exam: Positive: Conjunctiva & lids normal ENT Exam: Positive: Atraumatic, Mucous membr. moist/pink Neck Exam: Positive: Supple Chest Exam: Positive: Clear to auscultation, Normal air movement Heart Exam: Positive: Rate Normal, Normal S1, Normal S2 Abdomen Exam: Positive: Normal bowel sounds Skin Exam: Positive: Nl turgor and temperature Neuro Exam: Positive: Normal Gait, Normal Speech Psych Exam: Positive: Mental status NL A-FIB/CHADSVASC A-FIB History Current/History of A-Fib/PAF?: No Assessment /Plan Problems (1) Strangulated hernia of abdominal wall Status: Resolved Problem Text: Status post resection of the ischemic herniated Discussed with Dr. cortes today Pain management tolerating oral feeding PT, OT in progress Scheduled for Ultrasonic guided paracentesis Possible discharge in a.m. (2) BRET (acute kidney injury) Status: Acute Problem Text: Discontinue Toradol DC Lasix DC Lovenox Continue IV fluids normal saline 800 mL per hour . Heparin subcutaneous for DVT prophylaxis A.m. labs Plan/VTE VTE Prophylaxis Ordered?: Yes VS, I&O, 24H, Fishbone Vital Signs/I&O Vital Signs Date Time Temp Pulse Resp B/P (MAP) Pulse Ox O2 Delivery O2 Flow Rate FiO2 10/16/18 09:10 99.3 93 18 125/77 (93) 95 10/13/18 20:00 2.0 10/13/18 11:30 Room Air I&O- Last 24 Hours up to 6 AM 10/16/18 06:00 Intake Total 3920 ml Output Total 775 ml Balance 3145 ml Laboratory Data 24H LABS Laboratory Tests 2 10/16/18 04:51: Immature Granulocyte % (Auto) 0.6, White Blood Count 10.6H, Red Blood Count 3.04L, Hemoglobin 9.9L, Hematocrit 28.1L, Mean Corpuscular Volume 92.4, Mean Corpuscular Hemoglobin 32.6, Mean Corpuscular Hemoglobin Concent 35.2, Red Cell Distribution Width 14.4, Platelet Count 152, Neutrophils (%) (Auto) 73.2H, Lymphocytes (%) (Auto) 10.2L, Monocytes (%) (Auto) 11.3H, Eosinophils (%) (Auto) 4.1H, Basophils (%) (Auto) 0.6, Neutrophils # (Auto) 7.8H, Lymphocytes # (Auto) 1.1L, Monocytes # (Auto) 1.2H, Eosinophils # (Auto) 0.4, Basophils # (Auto) 0.1, Nucleated Red Blood Cells % (auto) 0.0, Anion Gap 7L, Glomerular Filtration Rate 27.4L, Blood Urea Nitrogen 50H, Creatinine 2.62H, Sodium Level 132L, Potassium Level 4.2, Chloride Level 102, Carbon Dioxide Level 23, Calcium Level 7.7L, Aspa rtate Amino Transf (AST/SGOT) 52H, Alanine Aminotransferase (ALT/SGPT) 24, Alkaline Phosphatase 95, Total Bilirubin 1.9H, Total Protein 6.9, Albumin 2.1L, Albumin/Globulin Ratio 0.44L 10/16/18 08:39: Prothrombin Time 17.2H, Prothromb Time International Ratio 1.38 CBC/BMP Laboratory Tests 10/16/18 04:51 Red Blood Count 3.04 L, Mean Corpuscular Volume 92.4, Mean Corpuscular Hemoglobin 32.6, Mean Corpuscular Hemoglobin Concent 35.2, Red Cell Distribution Width 14.4, Neutrophils (%) (Auto) 73.2 H, Lymphocytes (%) (Auto) 10.2 L, Monocytes (%) (Auto) 11.3 H, Eosinophils (%) (Auto) 4.1 H, Basophils (%) (Auto) 0.6, Neutrophils # (Auto) 7.8 H, Lymphocytes # (Auto) 1.1 L, Monocytes # (Auto) 1.2 H, Eosinophils # (Auto) 0.4, Basophils # (Auto) 0.1, Calcium Level 7.7 L, Aspartate Amino Transf (AST/SGOT) 52 H, Alanine Aminotransferase (ALT/SGPT) 24, Alkaline Phosphatase 95, Total Bilirubin 1.9 H, Total Protein 6.9, Albumin 2.1 L TONY LEYVA MD October 16, 2018 11:45
[2018-10-16] MEDS: MORPHINE 4 MG/ML 1ML VIAL/SYRINGE (J2270) IV PRN ×2 (12:28→18:43)
--- NOTE | 2018-10-16 12:55 | IPNPDOC ---
Subjective General Date/Time Seen The patient was seen on 10/16/18 at 12:50. Subject Chief Complaint/History The patient is a 53-year-old male admitted with a reason for visit of Incarcerated Umbilical Hernia. Patient reports he feels well. He denies any nausea, vomiting, abdominal discomfort. He does feel that his abdomen is getting more firm. He has been afebrile. He reports urine is concentrated Current Medications Current Medications Current Medications Acetaminophen (Tylenol Tab) 650 mg Q4HP PRN PO PAIN OR FEVER; Start 10/14/18 at 08:00 Enoxaparin Sodium (Lovenox) 40 mg DAILY SC Last administered on 10/15/18at 08:50; Start 10/14/18 at 09:00; Stop 10/16/18 at 11:41; Status DC Fentanyl Citrate (Sublimaze) 25 mcg Q5MP PRN IV MODERATE PAIN (PS 4-7); Start 10/13/18 at 15:15; Stop 10/13/18 at 16:15; Status DC Folic Acid (Folic Acid) 1 mg DAILY PO Last administered on 10/16/18at 08:19; Start 10/13/18 at 09:00 Furosemide (Lasix) 20 mg DAILY PO Last administered on 10/15/18at 10:41; Start 10/15/18 at 09:00; Stop 10/16/18 at 08:27; Status DC Furosemide (Lasix) 40 mg DAILY PO Last administered on 10/14/18at 09:24; Start 10/13/18 at 09:00; Stop 10/15/18 at 10:17; Status DC Heparin Sodium (Porcine) (Heparin) 5,000 units Q8H SQ ; Start 10/16/18 at 14:00 Home Med (Med Rec Complete!) ASDIRECTED XX ; Start 10/13/18 at 12:00; Stop 10/13/18 at 12:00; Status DC Hydrocortisone (Hydrocortisone 0.5% Cream) apply to both arms tid... TID PRN TOP ITCHING; Start 10/15/18 at 12:30 Ketorolac Tromethamine (ToRADol) 30 mg Q6HP PRN IV MILD/MODERATE PAIN (PS 1-7) Last administered on 10/13/18at 19:27; Start 10/13/18 at 15:00; Stop 10/15/18 at 10:15; Status DC Lactated Ringer's 1,000 ml @ 100 mls/hr Q10H IV Last administered on 10/15/18at 00:41; Start 10/13/18 at 14:48; Stop 10/15/18 at 10:16; Status DC Lactated Ringer's 1,000 ml @ 100 mls/hr Q10H IV ; Start 10/13/18 at 15:15; Stop 10/13/18 at 16:15; Status DC Lactulose (Cephulac) 30 ml BID PO Last administered on 10/16/18at 08:18; Start 10/13/18 at 21:00 Magnesium Sulfate/ Dextrose 1 gm/IV Miscellaneous Supplies 100 ml @ 100 mls/hr ASDIRECTED IV ; Start 10/13/18 at 11:45; Stop 10/13/18 at 12:44; Status Cancel Magnesium Sulfate/ Dextrose 1 gm/IV Miscellaneous Supplies 100 ml @ 100 mls/hr Q1H IV Last administered on 10/13/18at 17:49; Start 10/13/18 at 14:15; Stop 10/13/18 at 16:14; Status DC Meperidine HCl (Demerol) 12.5 mg Q5MP PRN IV SHIVERING; Start 10/13/18 at 15:15; Stop 10/13/18 at 16:15; Status DC Metoclopramide HCl (REGLAN INJection) 10 mg Q6HP PRN IV NAUSEA OR VOMITING; Start 10/13/18 at 15:15; Stop 10/13/18 at 16:15; Status DC Morphine Sulfate (Morphine Sulfate Inj) 4 mg Q2HP PRN IV SEVERE PAIN (PS 8-10) Last administered on 10/16/18at 12:28; Start 10/13/18 at 15:00 Ondansetron HCl (ZOFRAN INJection) 4 mg Q4HP PRN IV NAUSEA OR VOMITING; Start 10/13/18 at 15:15; Stop 10/13/18 at 16:15; Status DC Ondansetron HCl (ZOFRAN INJection) 4 mg Q6HP PRN IV NAUSEA OR VOMITING; Start 10/13/18 at 15:00 Oxycodone/ Acetaminophen (Percocet 5mg/ 325mg Tablet) 1 tab ASDIRECTED PRN PO MILD/MODERATE PAIN (PS 1-7); Start 10/13/18 at 15:15; Stop 10/13/18 at 16:15; Status DC Oxycodone/ Acetaminophen (Percocet 5mg/ 325mg Tablet) 1 tab Q4HP PRN PO MODERATE PAIN (PS 5-7) Last administered on 10/13/18at 21:59; Start 10/13/18 at 15:00 Oxycodone/ Acetaminophen (Percocet 5mg/ 325mg Tablet) 2 tab Q6HP PRN PO SEVERE PAIN (PS 8-10) Last administered on 10/15/18at 18:26; Start 10/13/18 at 15:00 Pantoprazole Sodium (Protonix) 40 mg DAILY IV Last administered on 10/15/18at 08:50; Start 10/14/18 at 09:00; Stop 10/15/18 at 11:13; Status DC Sodium Chloride 1,000 ml @ 100 mls/hr Q10H IV Last administered on 10/16/18at 06:23; Start 10/15/18 at 10:15 Spironolactone (Aldactone) 100 mg DAILY PO Last administered on 10/16/18at 08:19; Start 10/13/18 at 09:00 Allergies Coded Allergies: Penicillins (Verified Allergy, Unknown, 10/13/18) Objective Physical Examination Examination GENERAL APPEARANCE: Looks comfortable. SKIN: Warm and dry. HEENT: [Normocephalic, atraumatic. Mild pale palpebral conjunctiva, anicteric sclerae. Lips and mucosa appear moist]. NECK: [Supple, no thyromegaly. No obvious jugular venous distention]. LUNGS: [Clear to auscultation bilaterally. No wheezing appreciated]. HEART: [No chest wall abnormalities. Regular rate and rhythm with no murmurs appreciated]. ABDOMEN: Abdomen is round, soft, less distended but yesterday but overall looks firm. Midline periumbilical incision is covered with poor venous. No ascites leak. EXTREMITIES: No significant lower extremity edema. Vital Signs Vital Signs Date Time Temp Pulse Resp B/P (MAP) Pulse Ox O2 Delivery O2 Flow Rate FiO2 10/16/18 12:28 17 10/16/18 09:10 99.3 93 125/77 (93) 95 10/13/18 20:00 2.0 10/13/18 11:30 Room Air I&Os I&O- Last 24 Hours up to 6 AM 10/16/18 06:00 Intake Total 3920 ml Output Total 775 ml Balance 3145 ml Laboratory Data Labs 24H Laboratory Tests 2 10/16/18 04:51: Immature Granulocyte % (Auto) 0.6, White Blood Count 10.6H, Red Blood Count 3.04L, Hemoglobin 9.9L, Hematocrit 28.1L, Mean Corpuscular Volume 92.4, Mean Corpuscular Hemoglobin 32.6, Mean Corpuscular Hemoglobin Concent 35.2, Red Cell Distribution Width 14.4, Platelet Count 152, Neutrophils (%) (Auto) 73.2H, Lymphocytes (%) (Auto) 10.2L, Monocytes (%) (Auto) 11.3H, Eosinophils (%) (Auto) 4.1H, Basophils (%) (Auto) 0.6, Neutrophils # (Auto) 7.8H, Lymphocytes # (Auto) 1.1L, Monocytes # (Auto) 1.2H, Eosinophils # (Auto) 0.4, Basophils # (Auto) 0.1, Nucleated Red Blood Cells % (auto) 0.0, Anion Gap 7L, Glomerular Filtration Rate 27.4L, Blood Urea Nitrogen 50H, Creatinine 2.62H, Sodium Level 132L, Potassium Level 4.2, Chloride Level 102, Carbon Dioxide Level 23, Calcium Level 7.7L, Aspartate Amino Transf (AST/SGOT) 52H, Alanine Aminotransferase (ALT/SGPT) 24, Alkaline Phosphatase 95, Total Bilirubin 1.9H, Total Protein 6.9, Albumin 2.1L, Albumin/Globulin Ratio 0.44L 10/16/18 08:39: Prothrombin Time 17.2H, Prothromb Time International Ratio 1.38 CBC/BMP Laboratory Tests 10/16/18 04:51 Red Blood Count 3.04 L, Mean Corpuscular Volume 92.4, Mean Corpuscular Hemoglobin 32.6, Mean Corpuscular Hemoglobin Concent 35.2, Red Cell Distribution Width 14.4, Neutrophils (%) (Auto) 73.2 H, Lymphocytes (%) (Auto) 10.2 L, Monocytes (%) (Auto) 11.3 H, Eosinophils (%) (Auto) 4.1 H, Basophils (%) (Auto) 0.6, Neutrophils # (Auto) 7.8 H, Lymphocytes # (Auto) 1.1 L, Monocytes # (Auto) 1.2 H, Eosinophils # (Auto) 0.4, Basophils # (Auto) 0.1, Calcium Level 7.7 L, Aspartate Amino Transf (AST/SGOT) 52 H, Alanine Aminotransferase (ALT/SGPT) 24, Alkaline Phosphatase 95, Total Bilirubin 1.9 H, Total Protein 6.9, Albumin 2.1 L Impression POD3 Stangulated umbilical hernia s/p bowel resection, primary repair of hernia liver cirrhosis with ascites liver mass (?HCC) elevated BUN/Cr from admission, nonoliguric ARF from surgical standpoint, over all doing well. Patient moving his bowels, denies any severe abdominal discomfort, nausea and has been moving his bowels. Advance to regular diet. He has prevena dressing to help accelerate skin closure and avoid ascites leak - so far not much leakage . he will continue with the current dressing until battery runs out or until 10 days after Three concerns at this point: 1. renal function in background of liver problems - meds have been adjusted by Dr. Herrera. His BUN/Cr today continues to be elevated. He remains and IV fluids. He reports concentrated urine. Most likely still on the dry side. 2. increasing abdominal girth -?increasing ascites - will get an US and possibly paracentesis. 3. intermittent febrile episodes - no signs of peritonitis. wbc trending down. continue with current antibiotics Continue DVT prophylaxis Plan / VTE VTE Prophylaxis Ordered?: Yes CLAUDIA RODRÍGUEZ MD October 16, 2018 12:55
[2018-10-16 14:00] VITALS: BP 114/68
[2018-10-16] MEDS: HEPARIN SOD (PORCINE) 5000 UNITS/ML VIAL SQ SCH ×2 (14:00→21:15)
[2018-10-16 16:30] VITALS: BP 122/79
[2018-10-16] MEDS: PERCOCET 5MG/325MG TAB PO PRN (21:16)
[2018-10-16 22:00] VITALS: BP 117/77
[2018-10-17 02:00] VITALS: BP 139/86
[2018-10-17] MEDS: NS 1,000 ML IV SCH ×2 (03:54→12:36)
[2018-10-17] MEDS: MORPHINE 4 MG/ML 1ML VIAL/SYRINGE (J2270) IV PRN ×2 (05:26→20:35)
[2018-10-17] MEDS: HEPARIN SOD (PORCINE) 5000 UNITS/ML VIAL SQ SCH ×3 (05:26→22:21)
[2018-10-17 06:00] VITALS: BP 102/68
[2018-10-17 06:59] LABS: BASO # 0.1 10^3/uL (0.0-0.2); BASO % 0.6 % (0.0-1.0); EOS # 0.5 10^3/uL (0.0-0.50); EOS % 4.6 % (0.0-3.0); HEMOGLOBIN 10.3 g/dl (13.5-17.5); LYMPH # 1.4 10^3/uL (1.5-4.5); LYMPH % 12.1 % (24.0-44.0); MEAN CORPUSCULAR HEMOGLOBIN 32.1 pg (27.0-33.0); MEAN CORPUSCULAR HGB CONC 34.3 g/dl (32.0-36.5); MEAN CORPUSCULAR VOLUME 93.5 fl (80.0-96.0); MONO # 1.6 10^3/uL (0.0-0.8); MONO % 14.2 % (0.0-5.0); NEUTROPHILS # 7.6 10^3/uL (1.8-7.7); NEUTROPHILS % 67.7 % (36.0-66.0); PLATELET COUNT, AUTOMATED 179 10^3/uL (150-450); RED BLOOD COUNT 3.21 10^6/uL (4.30-6.10); WHITE BLOOD COUNT 11.2 10^3/uL (4.0-10.0)
[2018-10-17 07:26] LABS: ALBUMIN 2.1 GM/DL (3.2-5.2); BILIRUBIN,TOTAL 2.3 MG/DL (0.2-1.0); CALCIUM LEVEL 7.6 MG/DL (8.5-10.1); CREATININE FOR GFR 2.44 MG/DL (0.70-1.30); GLOMERULAR FILTRATION RATE 29.7 (>56); POTASSIUM SERUM 4.2 MEQ/L (3.5-5.1); TOTAL PROTEIN 6.5 GM/DL (6.4-8.2)
[2018-10-17] MEDS: FOLIC ACID 1 MG TAB PO SCH (09:23)
[2018-10-17] MEDS: LACTULOSE 20 GM/30 ML SYRUP UD PO SCH ×2 (09:24→20:35)
[2018-10-17] MEDS: SPIRONOLACTONE 50 MG TAB PO SCH (09:24)
[2018-10-17] MEDS ORDERED: ACET1TAB55 PO (10:05)
--- NOTE | 2018-10-17 10:15 | DS.PDOC ---
Discharge Summary General Date of Admission October 13, 2018 at 11:00 Date of Discharge 10/17/18 Attending Physician: TONY LEYVA MD Discharge Summary PROCEDURES PERFORMED DURING STAY: None. ADMITTING DIAGNOSES: 1. Strangulated abdominal wall hernia. DISCHARGE DIAGNOSES: 1. Strangulated abdominal wall hernia, BRET. COMPLICATIONS/CHIEF COMPLAINT: Incarcerated Umbilical Hernia. HISTORY OF PRESENT ILLNESS: Patient is a 53-year-old man with a history of known hepatocellular carcinoma with a large left liver lobe mass which is currently undergoing treatment at [facility] in [place]. He also has a known history of alcoholic liver cirrhosis. As well as known to hernias one umbilical and one right inguinal. The patient tells me that he was in his usual state of health living up here in [facility] during the summer when yesterday around 5 PM he began to have significant abdominal pain. Associated with nausea and vomiting no diarrhea no fevers or chills. He tells me that normally when he lies flat hernia disappears however since that time it is not and is actually quite swollen and tender. The patient describes good exercise tolerance no shortness of breath rash-like symptoms with strenuous activity he is very active. Otherwise patient denies weight loss, hair loss, headache, visual changes, chest pain, shortness of breath, cough, muscle aches, worsening arthritis, change in mood.. HOSPITAL COURSE: (1) Strangulated hernia of abdominal wall Discussed with Dr. cortes Patient is surgically and medically clear for discharge . He had a paracentesis done yesterday with removal of 3 L of ascites fluid Patient will be discharged home and he will follow up Dr. Barber as outpatient in 1 week Patient is a completely asymptomatic on discharge (2) BRET (acute kidney injury) Repeat renal function is much better, AKA is resolving after the diuretics and Lovenox were DC'd Continue oral hydration and follow with PCP in one week DISCHARGE MEDICATIONS: Please see below. ALLERGIES: Please see below. PHYSICAL EXAMINATION ON DISCHARGE: VITAL SIGNS: Please see below. GENERAL: Normal HEENT: PERRLA NECK: Supple, no JVD, no lymphadenopathy CARDIOVASCULAR EXAMINATION: S1, S2, regular RESPIRATORY EXAMINATION: Clear to A&P ABDOMINAL EXAMINATION: , Soft, nontender, bowel sounds present EXTREMITIES: No clubbing, cyanosis, edema SKIN: Normal NEUROLOGICAL EXAMINATION: Focal motor or sensory deficit PSYCHIATRIC EXAMINATION: Normal LABORATORY DATA: Please see below. IMAGING: As above PROGNOSIS: Good ACTIVITY: As tolerated. DIET: Regular DISCHARGE PLAN: Follow with Dr. bowles in one week One week DISPOSITION: . Home DISCHARGE INSTRUCTIONS: 1. As above. ITEMS TO FOLLOWUP ON ON OUTPATIENT: 1. As above. DISCHARGE CONDITION: Stable. TIME SPENT ON DISCHARGE: Greater than 35 minutes. Vital Signs/I&Os Vital Signs Date Time Temp Pulse Resp B/P (MAP) Pulse Ox O2 Delivery O2 Flow Rate FiO2 10/17/18 06:00 98.1 79 18 102/68 (79) 96 10/13/18 20:00 2.0 10/13/18 11:30 Room Air I&O- Last 24 Hours up to 6 AM 10/17/18 06:00 Intake Total 3960 ml Output Total 1200 ml Balance 2760 ml Laboratory Data Labs 24H Laboratory Tests 2 10/17/18 06:06: Immature Granulocyte % (Auto) 0.8, White Blood Count 11.2H, Red Blood Count 3.21L, Hemoglobin 10.3L, Hematocrit 30.0L, Mean Corpuscular Volume 93.5, Mean Corpuscular Hemoglobin 32.1, Mean Corpuscular Hemoglobin Concent 34.3, Red Cell Distribution Width 14.6H, Platelet Count 179, Neutrophils (%) (Auto) 67.7H, Lymphocytes (%) (Auto) 12.1L, Monocytes (%) (Auto) 14.2H, Eosinophils (%) (Auto) 4.6H, Basophils (%) (Auto) 0.6, Neutrophils # (Auto) 7.6, Lymphocytes # (Auto) 1.4L, Monocytes # (Auto) 1.6H, Eosinophils # (Auto) 0.5, Basophils # (Auto) 0.1, Nucleated Red Blood Cells % (auto) 0.0, Anion Gap 8, Glomerular Filtration Rate 29.7L, Blood Urea Nitrogen 44H, Creatinine 2.44H, Sodium Level 134L, Potassium Level 4.2, Chloride Level 102, Carbon Dioxide Level 24, Calcium Level 7.6L, Aspartate Amino Transf (AST/SGOT) 52H, Alanine Aminotransferase (ALT/SGPT) 28, Alkaline Phosphatase 111, Total Bilirubin 2.3H, Total Protein 6.5, Albumin 2.1L, Albumin/Globulin Ratio 0.48L CBC/BMP Laboratory Tests 10/17/18 06:06 Red Blood Count 3.21 L, Mean Corpuscular Volume 93.5, Mean Corpuscular Hemoglobin 32.1, Mean Corpuscular Hemoglobin Concent 34.3, Red Cell Distribution Width 14.6 H, Neutrophils (%) (Auto) 67.7 H, Lymphocytes (%) (Auto) 12.1 L, Monocytes (%) (Auto) 14.2 H, Eosinophils (%) (Auto) 4.6 H, Basophils (%) (Auto) 0.6, Neutrophils # (Auto) 7.6, Lymphocytes # (Auto) 1.4 L, Monocytes # (Auto) 1.6 H, Eosinophils # (Auto) 0.5, Basophils # (Auto) 0.1, Calcium Level 7.6 L, Aspartate Amino Transf (AST/SGOT) 52 H, Alanine Aminotransferase (ALT/SGPT) 28, Alkaline Phosphatase 111, Total Bilirubin 2.3 H, Total Protein 6.5, Albumin 2.1 L Discharge Medications Scheduled B1/B2/Niacin/B12/Protease (B-Complex with B-12 Tablet) 1 Each Tablet, 1 TAB PO DAILY, (Reported) Folic Acid (Folic Acid) 1 Mg Tablet, 1 MG PO DAILY, (Reported) Lactulose (Lactulose) 10 Gm/15 Ml Solution, 30 ML PO BID, (Reported) Multivitamin (Multivitamins) 1 Each Capsule, 1 CAP PO DAILY, (Reported) Spironolactone (Spironolactone) 50 Mg Tablet, 100 MG PO DAILY, (Reported) Scheduled PRN Acetaminophen (Acetaminophen) 325 Mg Tablet, 650 MG PO Q4HP PRN for PAIN OR FEVER Allergies Coded Allergies: Penicillins (Verified Allergy, Unknown, 10/13/18) TONY LEYVA MD October 17, 2018 10:15
[2018-10-17] MEDS ORDERED: NS 1,000 ML IV ONE (11:00)
[2018-10-17] MEDS: PERCOCET 5MG/325MG TAB PO PRN ×2 (13:32→18:48)
[2018-10-17 13:46] VITALS: BP 112/70
--- NOTE | 2018-10-17 14:46 | REP ---
Ultrasound-guided paracentesis The procedure was performed by KYLE Lopez, under the direct supervision of Dr. Peter. The risks and benefits of the procedure were explained to the patient and informed consent was obtained both verbally and written. Directly prior to the start of the procedure, a formal timeout was completed in the procedure room. Under ultrasound guidance, the largest pocket of fluid in the right flank was localized and skin was marked. The skin was then prepped and draped in a sterile fashion. 10 ml of 1% lidocaine was used as a local anesthetic. Using ultrasound guidance, an 8-Qatari multiphase side-hole catheter was inserted using trocar technique. 3,000 mL of pink colored fluid was withdrawn and discarded. The patient tolerated the procedure well and there were no immediate complications. After the appropriate monitored convalescence the patient was discharged from the department. Reviewed by KYLE Velez 10/16/2018 04:32 P Electronically Signed by Austin Peter MD 10/17/2018 02:37 P
[2018-10-17 22:00] VITALS: BP 117/74
[2018-10-18] MEDS: PERCOCET 5MG/325MG TAB PO PRN ×2 (01:56→09:45)
[2018-10-18] MEDS: NS 1,000 ML IV SCH (01:56)
[2018-10-18] MEDS: HEPARIN SOD (PORCINE) 5000 UNITS/ML VIAL SQ SCH (05:35)
[2018-10-18 06:00] VITALS: BP 112/66
[2018-10-18 06:37] LABS: BASO # 0.1 10^3/uL (0.0-0.2); BASO % 0.8 % (0.0-1.0); EOS # 0.5 10^3/uL (0.0-0.50); EOS % 4.1 % (0.0-3.0); HEMATOCRIT 28.6 % (42.0-52.0); HEMOGLOBIN 9.8 g/dl (13.5-17.5); LYMPH # 1.3 10^3/uL (1.5-4.5); LYMPH % 10.4 % (24.0-44.0); MEAN CORPUSCULAR HGB CONC 34.3 g/dl (32.0-36.5); MEAN CORPUSCULAR VOLUME 93.5 fl (80.0-96.0); MONO # 1.6 10^3/uL (0.0-0.8); MONO % 13.2 % (0.0-5.0); NEUTROPHILS # 8.5 10^3/uL (1.8-7.7); NEUTROPHILS % 70.4 % (36.0-66.0); PLATELET COUNT, AUTOMATED 205 10^3/uL (150-450); RED BLOOD COUNT 3.06 10^6/uL (4.30-6.10); WHITE BLOOD COUNT 12.1 10^3/uL (4.0-10.0)
[2018-10-18 06:53] LABS: CREATININE FOR GFR 2.45 MG/DL (0.70-1.30); GLOMERULAR FILTRATION RATE 29.6 (>56); POTASSIUM SERUM 4.2 MEQ/L (3.5-5.1)
[2018-10-18] MEDS: LACTULOSE 20 GM/30 ML SYRUP UD PO SCH (09:44)
[2018-10-18] MEDS: SPIRONOLACTONE 50 MG TAB PO SCH (09:44)
[2018-10-18] MEDS: FOLIC ACID 1 MG TAB PO SCH (09:44)
[2018-10-18] MEDS ORDERED: OXYC1CAP PO ×2 (10:11→10:19)
== END 2018-10-18 11:30 | disposition home or self-care (01) | DRG 221 ==
LOC: M ED 04:55 → M ED INP 11:00 → M PCU 16:08 → M MS4PR 10-16 09:06 → M MS5PR 10-16 16:35
PROVIDERS: ADMIT Surgery; ATTEND Internal Medicine
PROC: 0WQF0ZZ Repair Abdominal Wall, Open Approach (ICD-10-PCS; 2018-10-13)
PROC: 0DB80ZZ Excision of Small Intestine, Open Approach (ICD-10-PCS; principal; 2018-10-13 13:20)
PROC: 0W9G3ZZ Drainage of Peritoneal Cavity, Percutaneous Approach (ICD-10-PCS; 2018-10-16)
DX: K42.0 Umbilical hernia with obstruction, without gangrene (principal); N17.9 Acute kidney failure, unspecified; C22.0 Liver cell carcinoma; K70.31 Alcoholic cirrhosis of liver with ascites; E83.42 Hypomagnesemia; K21.9 Gastro-esophageal reflux disease without esophagitis; K40.90 Unilateral inguinal hernia, without obstruction or gangrene, not specified as recurrent; Z87.891 Personal history of nicotine dependence; Z79.899 Other long term (current) drug therapy; Z88.0 Allergy status to penicillin

== ENCOUNTER → 2018-12-05 | Outpatient (CLI) | payer OTHER ==
[~2018-12-05] MED LIST: ACET1TAB55 PO; B-COTAB25 PO; FOLI1TAB11 PO; FOLI400T PO; FURO20TA2 PO; LACT10SO29 PO; MELA3TAB41 PO; MULTCAP PO; ONDA-195 PO; ONDA4TAB6 PO; OXYC-517 PO; OXYC1CAP PO; SPIR50TA4 PO; VITACHTA PO
[2018-12-05 14:16] VITALS: BP 125/80
--- NOTE | 2018-12-05 17:54 | REP ---
Ultrasound-guided paracentesis The procedure was performed by KYLE Lopez, under the direct supervision of Dr. Peter. The risks and benefits of the procedure were explained to the patient and informed consent was obtained both verbally and written. Directly prior to the start of the procedure, a formal timeout was completed in the procedure room. Under ultrasound guidance, the largest pocket of fluid in the [ ] was localized and skin was marked. The skin was then prepped and draped in a sterile fashion. 10 ml of 1% lidocaine was used as a local anesthetic. Using ultrasound guidance, an 8-Rwandan multi side-hole catheter was inserted using trocar technique. 4,000 mL of clear yellow colored fluid was withdrawn and discarded. The patient tolerated the procedure well and there were no immediate complications. After the appropriate monitored convalescence the patient was discharged from the department. Reviewed by KYLE Velez 12/05/2018 03:19 P Electronically Signed by Austin Peter MD 12/05/2018 05:46 P
== END ==
LOC: M IRPRO 12:47 → M RADPRO 12:47
PROVIDERS: ATTEND Radiology Diagnostic Radiology
DX: K70.31 Alcoholic cirrhosis of liver with ascites (principal)

== ENCOUNTER 2019-01-12 11:30 | Outpatient (CLI) | payer OTHER ==
[~2019-01-12 11:30] MED LIST changes: -MELA3TAB41 PO; -ONDA-195 PO; -ONDA4TAB6 PO; -OXYC-517 PO; -VITACHTA PO
[2019-01-12] MEDS ORDERED: ONDA4TAB6 PO (11:54)
[2019-01-12 13:41] VITALS: BP 109/71
--- NOTE | 2019-01-12 15:22 | REP ---
Ultrasound-guided paracentesis The procedure was performed by KYLE Lopez, under the direct supervision of Dr. Rolon. The risks and benefits of the procedure were explained to the patient and informed consent was obtained both verbally and written. Directly prior to the start of the procedure, a formal timeout was completed in the procedure room. Under ultrasound guidance, the largest pocket of fluid in the right flank was localized and skin was marked. The skin was then prepped and draped in a sterile fashion. 10 ml of 1% lidocaine was used as a local anesthetic. Using ultrasound guidance, an 8-Yakut multi side-hole catheter was inserted using trocar technique. 2,900 mL of yisel colored fluid was withdrawn and discarded. The patient tolerated the procedure well and there were no immediate complications. After the appropriate monitored convalescence the patient was discharged from the department. Reviewed by KYLE Velez 01/12/2019 01:07 P Electronically Signed by Aj Rolon MD 01/12/2019 03:12 P
== END 2019-01-12 12:52 | disposition home or self-care (01) ==
LOC: M IRPRO 11:30
PROVIDERS: ATTEND Radiology Diagnostic Radiology
DX: K70.31 Alcoholic cirrhosis of liver with ascites (principal)

== ENCOUNTER 2019-01-13 21:36 | Inpatient (IN) | payer OTHER ==
[~2019-01-13] VITALS: Ht 177.8 cm; Wt 75.2 kg
[~2019-01-13 21:36] MED LIST changes: +ONDA4TAB6 PO
[2019-01-13 22:08] LABS: BASO # 0.1 10^3/uL (0.0-0.2); BASO % 0.6 % (0.0-1.0); EOS # 0.2 10^3/uL (0.0-0.50); EOS % 1.5 % (0.0-3.0); HEMATOCRIT 25.7 % (42.0-52.0); HEMOGLOBIN 8.7 g/dl (13.5-17.5); LYMPH # 1.5 10^3/uL (1.5-4.5); LYMPH % 10.1 % (24.0-44.0); MEAN CORPUSCULAR HEMOGLOBIN 30.2 pg (27.0-33.0); MEAN CORPUSCULAR HGB CONC 33.9 g/dl (32.0-36.5); MEAN CORPUSCULAR VOLUME 89.2 fl (80.0-96.0); MONO # 1.3 10^3/uL (0.0-0.8); MONO % 8.7 % (0.0-5.0); NEUTROPHILS # 11.3 10^3/uL (1.8-7.7); NEUTROPHILS % 78.5 % (36.0-66.0); PLATELET COUNT, AUTOMATED 284 10^3/uL (150-450); RED BLOOD COUNT 2.88 10^6/uL (4.30-6.10); WHITE BLOOD COUNT 14.4 10^3/uL (4.0-10.0)
[2019-01-13 22:35] LABS: ALBUMIN 1.9 GM/DL (3.2-5.2); BILIRUBIN,DIRECT 1.4 MG/DL (0.0-0.2); BILIRUBIN,TOTAL 2.1 MG/DL (0.2-1.0); CALCIUM LEVEL 7.7 MG/DL (8.5-10.1); CREATININE FOR GFR 2.59 MG/DL (0.70-1.30); GLOMERULAR FILTRATION RATE 27.7 (>56); POTASSIUM SERUM 3.5 MEQ/L (3.5-5.1); TOTAL PROTEIN 7.8 GM/DL (6.4-8.2)
[2019-01-13 22:52] LABS: INR 1.65; PROTHROMBIN TIME 19.3 SECONDS (11.8-14.0)
[2019-01-13 22:53] LABS: PARTIAL THROMBOPLASTIN TIME 40.2 SECONDS (25.0-38.4)
[2019-01-13] MEDS ORDERED: OCTREOTIDE ACETATE 1,200 MCG in NS 238.8 ML IV SCH (23:30)
[2019-01-13] MEDS ORDERED: ONDANSETRON 4MG/2ML VIAL (J2405) IV ONE (23:30)
[2019-01-13] MEDS ORDERED: NS 1,000 ML IV ONE (23:30)
[2019-01-13] MEDS ORDERED: PANTOPRAZOLE SODIUM 40 MG in D5W 50 ML IV SCH (23:30)
[2019-01-13] MEDS ORDERED: PANTOPRAZOLE 40MG INJ (PROTONIX) (C9113) IV ONE (23:30)
[2019-01-13] MEDS ORDERED: fentaNYL 100 MCG/2 ML INJECTION (J3010) IV ONE (23:30)
[2019-01-14] VITALS (35 sets, daily range): BP systolic 95–131; BP diastolic 64–85; O2SAT 97
[2019-01-14] MEDS ORDERED: ONDANSETRON 4MG/2ML VIAL (J2405) IV ONE (01:00)
[2019-01-14] MEDS ORDERED: OXYC-517 PO (01:03)
[2019-01-14] MEDS ORDERED: MELA3TAB41 PO (01:03)
[2019-01-14] MEDS ORDERED: VITACHTA PO (01:03)
[2019-01-14] MEDS ORDERED: ONDA-195 PO (01:03)
[2019-01-14] MEDS: NS 1,000 ML IV SCH ×3 (01:16→22:40)
--- NOTE | 2019-01-14 01:29 | HPEPDOC ---
General Date of Admission Jan 14, 2019 at 00:53 Date of Service: Jan 14, 2019 Chief Complaint The patient is a 53-year-old male admitted with a reason for visit of Gi Bleed,Hepatic Cancer. History of Present Illness 53m with hx of ckd, etoh cirrhosis and hcc s/p embolization, chronic ascites with weekly paracenteses last 01/12. Pt states his abdomen has been sore since the last paracentesis which is unusual for him. Today around noon he vomited blood. It seemed to resolve but again around 6pm he began vomiting again. He reports copious amounts of bright red blood was vomited. He also has been passing black stools. He denies dizziness, sob, palpitations, chest pain. He does note intermittent sweats and chills for the past two months. A full ROS was performed and negative except as above. Home Medications Scheduled Lactulose (Lactulose) 10 Gm/15 Ml Solution, 30 ML PO BID, (Reported) Multivitamins (Child Chew Vitamin) 1 Each Tab.chew, 1 TAB PO DAILY, (Reported) Scheduled PRN Melatonin (Melatonin) 3 Mg Tablet, 6 MG PO QHS PRN for INSOMNIA, (Reported) Ondansetron HCl (Ondansetron HCl) 4 Mg Tablet, 4 MG PO TID PRN for NAUSEA, (Reported) Oxycodone HCl (Oxycodone HCl) 5 Mg Tablet, 5 MG PO Q8H PRN for PAIN, (Reported) Allergies Coded Allergies: Penicillins (Verified Allergy, Unknown, 01/13/19) Past Medical History Medical History hcc, etoh, cirrhosis, ckd Family History Significant Family History: No pertinent family hx Social History * Smoker: Denies Alcohol: heavy A-FIB/CHADSVASC A-FIB History Current/History of A-Fib/PAF?: No Current PO Anticoag Therapy: No Age/Risk Factor Scoring CHADSVASC: CHADSVASC Response (Comments) Value Age Risk Factor Age < 65 years old 0 Gender Risk Factor Male 0 Hx of CHF No 0 Hx of HTN No 0 Hx of Stroke/TIA/or VTE No 0 Hx of Diabetes No 0 Hx of Vascular Disease No 0 Total 0 Treatment Treatment ordered: NONE Reason Anticoagulant not given: Not indicated/[id number] Physical Examination General Exam: Positive: Alert, Cooperative, No Acute Distress, Other (cachectic) Eye Exam: Positive: PERRLA, Conjunctiva & lids normal, EOMI ENT Exam: Positive: Atraumatic, Mucous membr. moist/pink, Pharynx Normal Neck Exam: Positive: Supple; Negative: JVD, thyromegaly Chest Exam: Positive: Clear to auscultation, Normal air movement Heart Exam: Positive: Rate Normal, Regular Rhythm, Normal S1, Normal S2; Negative: Murmurs, Rubs Abdomen Exam: Positive: Normal bowel sounds, Soft, Tenderness, Other (distended) Extremity Exam: Positive: Normal pulses; Negative: Clubbing, Cyanosis, Edema Skin Exam: Positive: Nl turgor and temperature; Negative: Breakdown, Lesion Neuro Exam: Positive: Normal Gait, Normal Speech, Cranial Nerves 3-12 NL, Reflexes 2+ Psych Exam: Positive: Mental status NL, Mood NL, Oriented x 3 Vital Signs Vital Signs Date Time Temp Pulse Resp B/P (MAP) Pulse Ox O2 Delivery O2 Flow Rate FiO2 01/14/19 00:36 97.8 83 118/77 (91) 99 Nasal Cannula 2.0 01/13/19 23:55 20 Laboratory Data Labs 24H Laboratory Tests 2 01/13/19 21:59: Immature Granulocyte % (Auto) 0.6, White Blood Count 14.4H, Red Blood Count 2.88L, Hemoglobin 8.7L, Hematocrit 25.7L, Mean Corpuscular Volume 89.2, Mean Corpuscular Hemoglobin 30.2, Mean Corpuscular Hemoglobin Concent 33.9, Red Cell Distribution Width 15.9H, Platelet Count 284, Neutrophils (%) (Auto) 78.5H, Lymphocytes (%) (Auto) 10.1L, Monocytes (%) (Auto) 8.7H, Eosinophils (%) (Auto) 1.5, Basophils (%) (Auto) 0.6, Neutrophils # (Auto) 11.3H, Lymphocytes # (Auto) 1.5, Monocytes # (Auto) 1.3H, Eosinophils # (Auto) 0.2, Basophils # (Auto) 0.1, Nucleated Red Blood Cells % (auto) 0.0, Prothrombin Time 19.3H, Prothromb Time International Ratio 1.65, Activated Partial Thromboplast Time 40.2H, Anion Gap 9, Glomerular Filtration Rate 27.7L, Calcium Level 7.7L, Aspartate Amino Transf (AST/SGOT) 53H, Alanine Aminotransferase (ALT/SGPT) 20, Alkaline Phosphatase 177H, Total Bilirubin 2.1H, Direct Bilirubin 1.4H, Total Protein 7.8, Albumin 1.9L, Albumin/Globulin Ratio 0.32L, Lipase 173 CBC/BMP Laboratory Tests 01/13/19 21:59 Red Blood Count 2.88 L, Mean Corpuscular Volume 89.2, Mean Corpuscular Hemoglobin 30.2, Mean Corpuscular Hemoglobin Concent 33.9, Red Cell Distribution Width 15.9 H, Neutrophils (%) (Auto) 78.5 H, Lymphocytes (%) (Auto) 10.1 L, Monocytes (%) (Auto) 8.7 H, Eosinophils (%) (Auto) 1.5, Basophils (%) (Auto) 0.6, Neutrophils # (Auto) 11.3 H, Lymphocytes # (Auto) 1.5, Monocytes # (Auto) 1.3 H, Eosinophils # (Auto) 0.2, Basophils # (Auto) 0.1 Assessment/Plan 53m p/w upper gi bleeding concern for variceal bleed started on ppi and octreotide in ER getting transfused prbcs currently hemodynamically stable however continues to vomit blood in ER admit to ICU start prophylactic abx gi consulted egd in am ckd appears about baseline maintain hydration abd pain/ascites started on abx would consider the possibility of peritonitis after bleeding is stabilized Plan / VTE VTE Prophylaxis Ordered?: Yes VTE Exclusion Mechanical Proph: N/A:VTE Prophy Ordered VTE Exclusion Pharmacological: Active Bleeding NEHA MURRAY MD Jan 14, 2019 01:29
[2019-01-14] MEDS ORDERED: cefTRIAXone SOD 1 GM in D5W MINI-BAG PLUS 50 ML IV SCH (02:00)
[2019-01-14] MEDS: PANTOPRAZOLE SODIUM 40 MG in D5W 50 ML IV SCH ×5 (03:20→21:46)
[2019-01-14] MEDS: PROMETHAZINE INJ 25 MG/ML VIAL (J2550) IV PRN ×2 (03:21→22:40)
[2019-01-14] MEDS: MORPHINE 4 MG/ML 1ML VIAL/SYRINGE (J2270) IV PRN ×3 (03:21→22:30)
[2019-01-14 07:28] LABS: BASO # 0.1 10^3/uL (0.0-0.2); BASO % 0.6 % (0.0-1.0); EOS # 0.2 10^3/uL (0.0-0.50); EOS % 1.9 % (0.0-3.0); HEMATOCRIT 24.9 % (42.0-52.0); HEMOGLOBIN 8.6 g/dl (13.5-17.5); LYMPH # 1.4 10^3/uL (1.5-4.5); LYMPH % 11.8 % (24.0-44.0); MEAN CORPUSCULAR HEMOGLOBIN 30.2 pg (27.0-33.0); MEAN CORPUSCULAR HGB CONC 34.5 g/dl (32.0-36.5); MEAN CORPUSCULAR VOLUME 87.4 fl (80.0-96.0); MONO # 1.1 10^3/uL (0.0-0.8); MONO % 9.1 % (0.0-5.0); NEUTROPHILS # 9.3 10^3/uL (1.8-7.7); NEUTROPHILS % 75.7 % (36.0-66.0); PLATELET COUNT, AUTOMATED 217 10^3/uL (150-450); RED BLOOD COUNT 2.85 10^6/uL (4.30-6.10); WHITE BLOOD COUNT 12.3 10^3/uL (4.0-10.0)
[2019-01-14 07:54] LABS: ALBUMIN 1.7 GM/DL (3.2-5.2); BILIRUBIN,TOTAL 2.9 MG/DL (0.2-1.0); CALCIUM LEVEL 7.2 MG/DL (8.5-10.1); CREATININE FOR GFR 2.38 MG/DL (0.70-1.30); GLOMERULAR FILTRATION RATE 30.6 (>56); POTASSIUM SERUM 4.1 MEQ/L (3.5-5.1); TOTAL PROTEIN 6.6 GM/DL (6.4-8.2)
[2019-01-14] MEDS ORDERED: LACTULOSE 20 GM/30 ML SYRUP UD PO ONE (09:45)
[2019-01-14] MEDS: MEROPENEM INJ 1 GM in APPROPRIATE DILUENT 1 EA IV SCH ×2 (11:55→23:05)
[2019-01-14] MEDS ORDERED: LIDOCAINE 2% INJ 100 MG/5 ML SDV (FOR ANES.) As Ordered ONE (14:11)
[2019-01-14] MEDS ORDERED: ROCURONIUM BROMIDE 50 MG/5 ML VIAL As Ordered ONE (14:11)
[2019-01-14] MEDS ORDERED: PROPOFOL 200 MG/20 ML VIAL As Ordered ONE (14:11)
[2019-01-14] MEDS ORDERED: fentaNYL 100 MCG/2 ML INJECTION (J3010) As Ordered ONE (15:00)
--- NOTE | 2019-01-14 15:47 | ROOR ---
Patient Name: Braulio Soto Procedure Date: 01/14/2019 2:26 PM Date of : 1965 Age: 53 Room: Main OR Gender: Male Note Status: Finalized Procedure: Upper GI endoscopy + Banding Indications: Hematemesis, Active gastrointestinal bleeding Providers: Michael Pérez MD Referring MD: 2. Inpatient 2. Inpatient Requesting Provider: Medicines: Monitored Anesthesia Care Complications: No immediate complications. Procedure: Pre-Anesthesia Assessment: - The heart rate, respiratory rate, oxygen saturations, blood pressure, adequacy of pulmonary ventilation, and response to care were monitored throughout the procedure. The Endoscope was introduced through the mouth, and advanced to the second part of duodenum. The upper GI endoscopy was accomplished without difficulty. The patient tolerated the procedure well. Findings: Grade III varices were found in the lower third of the esophagus. They were large in size. Four bands were successfully placed with incomplete eradication of varices. Bleeding had stopped at the end of the procedure. No other significant abnormalities were identified in a careful examination of the stomach. The exam of the duodenum was otherwise normal. Impression: - Grade III esophageal varices. Incompletely eradicated. Banded. - No specimens collected. - The examination was otherwise normal. Recommendation: - Patient has a contact number available for emergencies. The signs and symptoms of potential delayed complications were discussed with the patient. Return to normal activities tomorrow. Written discharge instructions were provided to the patient. - NPO. - Return patient to ICU for ongoing care. - The findings and recommendations were discussed with the patient's family. - The findings and recommendations were discussed with the referring physician. Michael Pérez MD Michael Pérez MD 01/14/2019 3:47:05 PM Electronically signed by Michael Pérez MD Number of Addenda: 0 Note Initiated On: 01/14/2019 2:26 PM Estimated Blood Loss: Estimated blood loss: none.
[2019-01-14] MEDS ORDERED: PROPOFOL 1,000 MG/100 ML VIAL As Ordered ONE (15:51)
--- NOTE | 2019-01-14 16:01 | DS.PDOC ---
Discharge Summary General Date of Admission Jan 14, 2019 at 00:53 Date of Discharge 01/14/19 Attending Physician: TONY LEYVA MD Discharge Summary PROCEDURES PERFORMED DURING STAY: EGD and banding of varices. ADMITTING DIAGNOSES: 1. Upper GI bleed. DISCHARGE DIAGNOSES: 1. Upper GI bleed, variceal bleed, possible peritonitis, end-stage liver disease. COMPLICATIONS/CHIEF COMPLAINT: Gi Bleed,Hepatic Cancer. HISTORY OF PRESENT ILLNESS: 53m with hx of ckd, etoh cirrhosis and hcc s/p embolization, chronic ascites with weekly paracenteses last 01/12. Pt states his abdomen has been sore since the last paracentesis which is unusual for him. Today around noon he vomited blood. It seemed to resolve but again around 6pm he began vomiting again. He reports copious amounts of bright red blood was vomited. He also has been passing black stools. He denies dizziness, sob, palpitations, chest pain. He does note intermittent sweats and chills for the past two months. . HOSPITAL COURSE: [Patient was admitted with to ICU with the diagnosis of variceal bleed. Patient's H&H remained stable. He was started on octreotide and Protonix drips. GI consult was called and patient was taken for EGD today by Dr. Michael Pérez as per Dr. Pérez. He applied, bands to liters, but chen ent requires further intervention and possibly TIPS procedure. He advised to transfer patient to [facility] in [place]. The patient has been seen in the past and he is on the lower transplant list there. Patient was also started on Rocephin as he was been complaining of abdominal pain at the paracentesis site. His WBC count was 14,000 and he did had a low-grade fever. It was suspected that patient might have had early stage of peritonitis, patient antibiotics later on were changed to Merrem 1 g IV every 8 hours. Was the bed is available at [facility] patient will be transferred there as soon as possible. DISCHARGE MEDICATIONS: Please see below. ALLERGIES: Please see below. PHYSICAL EXAMINATION ON DISCHARGE: VITAL SIGNS: Please see below. GENERAL: Within normal limits HEENT: PERRLA. Extraocular muscles intact NECK: Supple, no JVD, no lymphadenopathy CARDIOVASCULAR EXAMINATION: S1, S2, regular RESPIRATORY EXAMINATION: Clear to A&P ABDOMINAL EXAMINATION: , Soft, nontender, bowel sounds present EXTREMITIES: No clubbing, cyanosis, edema SKIN: Normal NEUROLOGICAL EXAMINATION: Normal PSYCHIATRIC EXAMINATION: Normal LABORATORY DATA: Please see below. IMAGING: CT abdomen and pelvis report:Umbilical hernia contains an obstructed small bowel loop and a small amount of ascites fluid. There is a right inguinal hernia containing ascites fluid with a communicating moderate right hydrocele. Mild diffuse ascites. A liver mass measures 7 cm in maximum diameter, located in the left lobe. Gallstones in a moderately distended gallbladder with no definite biliary dilatation PROGNOSIS: Poor ACTIVITY: Bed rest. DIET: Nothing by mouth at the present time DISCHARGE PLAN: Transferred to [facility] DISPOSITION: . Transferred to tertiary care facility DISCHARGE INSTRUCTIONS: 1. As per discharge instructions. ITEMS TO FOLLOWUP ON ON OUTPATIENT: 1. As per accepting facility. DISCHARGE CONDITION: Stable. TIME SPENT ON DISCHARGE: 45 minutes. Vital Signs/I&Os Vital Signs Date Time Temp Pulse Resp B/P (MAP) Pulse Ox O2 Delivery O2 Flow Rate FiO2 01/14/19 13:16 98.6 64 14 112/73 (86) 96 01/14/19 01:26 Room Air 01/14/19 00:36 2.0 I&O- Last 24 Hours up to 6 AM 01/14/19 06:00 Intake Total 2160 ml Output Total 0 ml Balance 2160 ml Laboratory Data Labs 24H Laboratory Tests 2 01/13/19 21:59: Immature Granulocyte % (Auto) 0.6, White Blood Count 14.4H, Red Blood Count 2.88L, Hemoglobin 8.7L, Hematocrit 25.7L, Mean Corpuscular Volume 89.2, Mean Co rpuscular Hemoglobin 30.2, Mean Corpuscular Hemoglobin Concent 33.9, Red Cell Distribution Width 15.9H, Platelet Count 284, Neutrophils (%) (Auto) 78.5H, Lymphocytes (%) (Auto) 10.1L, Monocytes (%) (Auto) 8.7H, Eosinophils (%) (Auto) 1.5, Basophils (%) (Auto) 0.6, Neutrophils # (Auto) 11.3H, Lymphocytes # (Auto) 1.5, Monocytes # (Auto) 1.3H, Eosinophils # (Auto) 0.2, Basophils # (Auto) 0.1, Nucleated Red Blood Cells % (auto) 0.0, Prothrombin Time 19.3H, Prothromb Time International Ratio 1.65, Activated Partial Thromboplast Time 40.2H, Anion Gap 9, Glomerular Filtration Rate 27.7L, Calcium Level 7.7L, Aspartate Amino Transf (AST/SGOT) 53H, Alanine Aminotransferase (ALT/SGPT) 20, Alkaline Phosphatase 177H, Total Bilirubin 2.1H, Direct Bilirubin 1.4H, Total Protein 7.8, Albumin 1.9L, Albumin/Globulin Ratio 0.32L, Lipase 173 01/14/19 02:50: Magnesium Level 1.8 01/14/19 07:15: Ammonia 144H 01/14/19 07:17: Immature Granulocyte % (Auto) 0.9, White Blood Count 12.3H, Red Blood Count 2.85L, Hemoglobin 8.6L, Hematocrit 24.9L, Mean Corpuscular Volume 87.4, Mean Corpuscular Hemoglobin 30.2, Mean Corpuscular Hemoglobin Concent 34.5, Red Cell Distribution Width 15.8H, Platelet Count 217, Neutrophils (%) (Auto) 75.7H, Lymphocytes (%) (Auto) 11.8L, Monocytes (%) (Auto) 9.1H, Eosinophils (%) (Auto) 1.9, Basophils (%) (Auto) 0.6, Neutrophils # (Auto) 9.3H, Lymphocytes # (Auto) 1.4L, Monocytes # (Auto) 1.1H, Eosinophils # (Auto) 0.2, Basophils # (Auto) 0.1, Nucleated Red Blood Cells % (auto) 0.0, Anion Gap 9, Glomerular Filtration Rate 30.6L, Calcium Level 7.2L, Aspartate Amino Transf (AST/SGOT) 46H, Alanine Aminotransferase (ALT/SGPT) 15, Alkaline Phosphatase 131H, Total Bilirubin 2.9H, Total Protein 6.6, Albumin 1.7L, Albumin/Globulin Ratio 0.35L, Blood Urea Nitrogen 49H, Creatinine 2.38H, Sodium Level 138, Potassium Level 4.1, Chloride Level 106, Carbon Dioxide Level 23 CBC/BMP Laboratory Tests 01/13/19 21:59 Red Blood Count 2.88 L, Mean Corpuscular Volume 89.2, Mean Corpuscular Hemoglobin 30.2, Mean Corpuscular Hemoglobin Concent 33.9, Red Cell Distribution Width 15.9 H, Neutrophils (%) (Auto) 78.5 H, Lymphocytes (%) (Auto) 10.1 L, Monocytes (%) (Auto) 8.7 H, Eosinophils (%) (Auto) 1.5, Basophils (%) (Auto) 0.6, Neutrophils # (Auto) 11.3 H, Lymphocytes # (Auto) 1.5, Monocytes # (Auto) 1.3 H, Eosinophils # (Auto) 0.2, Basophils # (Auto) 0.1 01/14/19 07:17 Red Blood Count 2.85 L, Mean Corpuscular Volume 87.4, Mean Corpuscular Hemoglobin 30.2, Mean Corpuscular Hemoglobin Concent 34.5, Red Cell Distribution Width 15.8 H, Neutrophils (%) (Auto) 75.7 H, Lymphocytes (%) (Auto) 11.8 L, Monocytes (%) (Auto) 9.1 H, Eosinophils (%) (Auto) 1.9, Basophils (%) (Auto) 0.6, Neutrophils # (Auto) 9.3 H, Lymphocytes # (Auto) 1.4 L, Monocytes # (Auto) 1.1 H, Eosinophils # (Auto) 0.2, Basophils # (Auto) 0.1, Calcium Level 7.2 L, Aspartate Amino Transf (AST/SGOT) 46 H, Alanine Aminotransferase (ALT/SGPT) 15, Alkaline Phosphatase 131 H, Total Bilirubin 2.9 H, Total Protein 6.6, Albumin 1.7 L Microbiology Microbiology 01/14/19 Blood Culture, Received Pending 01/14/19 Blood Culture, Received Pending Discharge Medications Scheduled Lactulose (Lactulose) 10 Gm/15 Ml Solution, 30 ML PO BID, (Reported) Multivitamins (Child Chew Vitamin) 1 Each Tab.chew, 1 TAB PO DAILY, (Reported) Scheduled PRN Melatonin (Melatonin) 3 Mg Tablet, 6 MG PO QHS PRN for INSOMNIA, (Reported) Ondansetron HCl (Ondansetron HCl) 4 Mg Tablet, 4 MG PO TID PRN for NAUSEA, (Reported) Oxycodone HCl (Oxycodone HCl) 5 Mg Tablet, 5 MG PO Q8H PRN for PAIN, (Reported) Allergies Coded Allergies: Penicillins (Verified Allergy, Unknown, 01/13/19) TONY LEYVA MD Jan 14, 2019 16:01
[2019-01-14] MEDS ORDERED: ONDANSETRON 4MG/2ML VIAL (J2405) IV PRN (16:15)
[2019-01-14] MEDS ORDERED: LR 1,000 ML IV SCH (16:15)
[2019-01-14] MEDS ORDERED: fentaNYL 100 MCG/2 ML INJECTION (J3010) IV PRN (16:15)
[2019-01-14] MEDS ORDERED: PROMETHAZINE INJ 25 MG/ML VIAL (J2550) IV PRN (16:15)
[2019-01-14] MEDS ORDERED: PROPOFOL 1,000 MG/100 ML VIAL IV SCH (16:15)
[2019-01-14 16:32] LABS: ABG BASE EXCESS -5.8 (-2.0-2.0); ABG HCO3 19.6 MEQ/L (22.0-26.0); ABG MODE OF VENT PRVC; ABG O2 SATURATION 91.8 % (95.0-99.0); ABG PARTIAL PRESSURE CO2 37.9 mmHg (35.0-45.0); ABG PARTIAL PRESSURE O2 68.8 mmHg (75.0-100.0); ABG PATIENT RESP RATE 12 /MIN; ABG SITE RT RADIAL; ABG STANDARD HCO3 19.6 MEQ/L (22.0-26.0); ABG TIDAL VOLUME 400 cc; ABG TOTAL CO2 20.7 MEQ/L (22.0-29.0); ABG pH (ARTERIAL) 7.331 UNITS (7.350-7.450)
[2019-01-14 18:10] LABS: ABG HCO3 20.1 MEQ/L (22.0-26.0); ABG O2 SATURATION 92.6 % (95.0-99.0); ABG PARTIAL PRESSURE CO2 37.4 mmHg (35.0-45.0); ABG PARTIAL PRESSURE O2 70.2 mmHg (75.0-100.0); ABG STANDARD HCO3 20.2 MEQ/L (22.0-26.0); ABG TOTAL CO2 21.2 MEQ/L (22.0-29.0); ABG pH (ARTERIAL) 7.348 UNITS (7.350-7.450)
[2019-01-14] MEDS ORDERED: PROPOFOL 1,000 MG in APPROPRIATE DILUENT 1 EA IV SCH (18:45)
[2019-01-14 19:27] LABS: HEMATOCRIT 26.6 % (42.0-52.0); HEMOGLOBIN 9.2 g/dl (13.5-17.5); MEAN CORPUSCULAR HEMOGLOBIN 29.8 pg (27.0-33.0); MEAN CORPUSCULAR HGB CONC 34.6 g/dl (32.0-36.5); MEAN CORPUSCULAR VOLUME 86.1 fl (80.0-96.0); PLATELET COUNT, AUTOMATED 213 10^3/uL (150-450); RED BLOOD COUNT 3.09 10^6/uL (4.30-6.10); WHITE BLOOD COUNT 19.3 10^3/uL (4.0-10.0)
[2019-01-14] MEDS: OCTREOTIDE ACETATE 1,200 MCG in NS 238.8 ML IV SCH (23:05)
[2019-01-15] VITALS (28 sets, daily range): BP systolic 100–122; BP diastolic 61–84
[2019-01-15] MEDS: MORPHINE 4 MG/ML 1ML VIAL/SYRINGE (J2270) IV PRN ×4 (01:50→19:28)
[2019-01-15] MEDS: PANTOPRAZOLE SODIUM 40 MG in D5W 50 ML IV SCH ×5 (03:04→23:12)
[2019-01-15 05:01] LABS: BASO # 0.1 10^3/uL (0.0-0.2); BASO % 0.8 % (0.0-1.0); EOS # 0.4 10^3/uL (0.0-0.50); EOS % 3.3 % (0.0-3.0); HEMATOCRIT 24.3 % (42.0-52.0); HEMOGLOBIN 8.1 g/dl (13.5-17.5); LYMPH # 1.6 10^3/uL (1.5-4.5); LYMPH % 14.7 % (24.0-44.0); MEAN CORPUSCULAR HEMOGLOBIN 29.5 pg (27.0-33.0); MEAN CORPUSCULAR HGB CONC 33.3 g/dl (32.0-36.5); MEAN CORPUSCULAR VOLUME 88.4 fl (80.0-96.0); MONO % 9.3 % (0.0-5.0); NEUTROPHILS # 7.8 10^3/uL (1.8-7.7); NEUTROPHILS % 70.7 % (36.0-66.0); PLATELET COUNT, AUTOMATED 215 10^3/uL (150-450); RED BLOOD COUNT 2.75 10^6/uL (4.30-6.10)
[2019-01-15 05:28] LABS: ALBUMIN 1.6 GM/DL (3.2-5.2); CALCIUM LEVEL 7.6 MG/DL (8.5-10.1); CREATININE FOR GFR 2.55 MG/DL (0.70-1.30); GLOMERULAR FILTRATION RATE 28.3 (>56); TOTAL PROTEIN 6.2 GM/DL (6.4-8.2)
[2019-01-15] MEDS: NS 1,000 ML IV SCH ×2 (08:25→23:12)
--- NOTE | 2019-01-15 09:57 | IPNPDOC ---
Subjective Date Seen The patient was seen on 01/15/19. Subjective Chief Complaint/HPI Patient is awake, alert, oriented 3, in no distress. No more bouts of upper GI bleed General: Denies: ROS Unobtainable, Chills, Night Sweats, Fatigue, Malaise, Normal Appetite, Other Symptoms Constitutional: Denies: Chills, Fever, Malaise, Night Sweats, Weakness, Fatigue, Weight Loss, Lethargy, Other Eyes: Denies: Pain, Vision change, Conjunctivae inflammation, Eyelid inflamm ation, Redness, Other ENT: Denies: Head Aches, Ear Pain, Dysphagia, Sinus Congestion, Post Nasal Drip, Sore Throat, Epistaxis, Other Symptoms Skin: Denies: Rash, Lesions, Jaundice, Bruising, Itching, Dry, Breakdown, Nail Changes, Other Pulmonary: Denies: Dyspnea, Cough, Pleuritic Chest Pain, Other Symptoms Cardiovascular: Denies: Chest Pain, Palpitations, Orthopnea, Paroxysmal Noc. Dyspnea, Edema, Lt Headedness, Other Symptoms Gastrointestinal: Denies: Nausea, Vomiting, Abdominal Pain, Diarrhea, Constipation, Melena, Hematochezia, Other Symptoms Musculoskeletal: Denies: Neck Pain, Back Pain, Shoulder Pain, Arm Pain, Hand Pain, Leg Pain, Foot Pain, Joint Pain, Muscle Pain, Spasms, Other Symptoms Neurological: Denies: Weakness, Numbness, Incoordination, Change in speech, Confusion, Seizures, Other Symptoms Objective Physical Examination General Exam: Positive: Alert, Cooperative, No Acute Distress, Other (cachectic) Eye Exam: Positive: PERRLA, Conjunctiva & lids normal, EOMI ENT Exam: Positive: Atraumatic, Mucous membr. moist/pink, Pharynx Normal Neck Exam: Positive: Supple; Negative: JVD, thyromegaly Chest Exam: Positive: Clear to auscultation, Normal air movement Heart Exam: Positive: Rate Normal, Regular Rhythm, Normal S1, Normal S2; Negative: Murmurs, Rubs Abdomen Exam: Positive: Normal bowel sounds, Soft, Tenderness, Other (distended) Extremity Exam: Positive: Normal pulses; Negative: Clubbing, Cyanosis, Edema Skin Exam: Positive: Nl turgor and temperature; Negative: Breakdown, Lesion Neuro Exam: Positive: Normal Gait, Normal Speech, Cranial Nerves 3-12 NL, Reflexes 2+ Psych Exam: Positive: Mental status NL, Mood NL, Oriented x 3 Assessment /Plan Problems (1) Esophageal varices with bleeding Status: Acute Problem Text: Patient's H&H today is 8.1/24.3 We will transfuse 2 more units of PRBC today Patient is not actively bleeding at the present time [facility] in [place] was called but they declined to accept patient for transfer as patient is no more on the liver transplant list. They will not be performing TIPS procedure as bridging towards transplant and advised to continue present care. Continue octreotide and Protonix I had a long discussion with patient and his brother and his father along with Elda at the bedside regarding patient's management and prognosis. Patient was asked about his decision regarding DNR/DNI status. Patient will think about it and inform us once he is decided. As such, patient is a poor prognosis and will continue symptomatic and supportive care. In the meantime PTL well. Will be called in to work with patient to get him out of bed (2) Acute blood loss anemia Status: Acute Problem Text: Secondary to variceal bleed and blood loss during his procedure , We'll transfuse units of PRBC to improve his hemoglobin and hematocrit (3) Alcoholic cirrhosis Status: Chronic Problem Text: End-stage liver cirrhosis , He receives a paracentesis frequently for ascites Continue supportive care (4) Hepatic cancer Status: Chronic Problem Text: Poor prognosis Supportive care (5) Hepatic encephalopathy Status: Resolved Problem Text: Patient's baseline. Ammonia was high. He received electrical yesterday with improvement in his mental status Patient alert, oriented 3 today Repeat ammonia level again and is started. Lactulose as needed (6) Acute peritonitis Status: Acute Problem Text: Most likely secondary to repeated paracentesis As per patient, he started having abdominal pain of his last paracentesis . He did have leukocytosis and patient was started on Rocephin, which was DC'd and is started on meropenem broad-spectrum coverage Patient seems to be improving symptomatically and on laboratory work Repeat CBC, CMP in a.m. Plan/VTE VTE Prophylaxis Ordered?: Yes VTE Exclusion Mechanical Proph: N/A:VTE Prophy Ordered VTE Exclusion Pharmacological: Active Bleeding VS, I&O, 24H, Fishbone Vital Signs/I&O Vital Signs Date Time Temp Pulse Resp B/P (MAP) Pulse Ox O2 Delivery O2 Flow Rate FiO2 01/15/19 09:00 99.4 82 14 108/70 (83) 95 01/15/19 06:00 2.0 01/15/19 01:00 35 01/14/19 18:15 Aerosol Mask I&O- Last 24 Hours up to 6 AM 01/15/19 05:59 Intake Total 4760 ml Output Total 2775 ml Balance 1985 ml Laboratory Data 24H LABS Laboratory Tests 2 01/14/19 16:25: Blood Gas Bicarbonate Standard 19.6L, Arterial Blood pH 7.331L, Arterial Blood Partial Pressure CO2 37.9, Arterial Blood Partial Pressure O2 68.8L, Arterial Blood Total CO2 20.7L, Arterial Blood HCO3 19.6L, Arterial Blood Base Excess - 5.8L, Arterial Blood Oxygen Saturation 91.8L, Arterial Blood Gas Vent Mode PRVC, Arterial Blood Gas Tidal Volume 400, Arterial Blood Gas Respiration Rate 12, Arterial Blood Gas Puncture Site RT RADIAL, Oxygen Delivery Device MECHAN. VENT 01/14/19 18:00: Blood Gas Bicarbonate Standard 20.2L, Arterial Blood pH 7.348L, Arterial Blood Partial Pressure CO2 37.4, Arterial Blood Partial Pressure O2 70.2L, Arterial Blood Total CO2 21.2L, Arterial Blood HCO3 20.1L, Arterial Blood Base Excess - 5.0L, Arterial Blood Oxygen Saturation 92.6L 01/14/19 19:21: Nucleated Red Blood Cells % (auto) 0.0 01/15/19 04:48: Nucleated Red Blood Cells % (auto) 0.0, Immature Granulocyte % (Auto) 1.2, White Blood Count 11.0H, Red Blood Count 2.75L, Hemoglobin 8.1L, Hematocrit 24.3L, Mean Corpuscular Volume 88.4, Mean Corpuscular Hemoglobin 29.5, Mean Corpuscular Hemoglobin Concent 33.3, Red Cell Distribution Width 16.2H, Platelet Count 215, Neutrophils (%) (Auto) 70.7H, Lymphocytes (%) (Auto) 14.7L, Monocytes (%) (Auto) 9.3H, Eosinophils (%) (Auto) 3.3H, Basophils (%) (Auto) 0.8, Neutrophils # (Auto) 7.8H, Lymphocytes # (Auto) 1.6, Monocytes # (Auto) 1.0H, Eosinophils # (Auto) 0.4, Basophils # (Auto) 0.1, Anion Gap 6L, Glomerular Filtration Rate 28.3L, Blood Urea Nitrogen 50H, Creatinine 2.55H, Sodium Level 141, Potassium Level 4.0, Chloride Level 113H, Carbon Dioxide Level 22, Calcium Level 7.6L, Aspartate Amino Transf (AST/SGOT) 44H, Alanine Aminotransferase (ALT/SGPT) 15, Alkaline Phosphatase 121H, Total Bilirubin 3.0H, Total Protein 6.2L, Albumin 1.6L, Albumin/Globulin Ratio 0.35L 01/15/19 08:49: Ammonia 44H CBC/BMP Laboratory Tests 01/14/19 19:21 Red Blood Count 3.09 L, Mean Corpuscular Volume 86.1, Mean Corpuscular Hemoglobin 29.8, Mean Corpuscular Hemoglobin Concent 34.6, Red Cell Distribution Width 15.9 H 01/15/19 04:48 Red Blood Count 2.75 L, Mean Corpuscular Volume 88.4, Mean Corpuscular Hemoglobin 29.5, Mean Corpuscular Hemoglobin Concent 33.3, Red Cell Distribution Width 16.2 H, Neutrophils (%) (Auto) 70.7 H, Lymphocytes (%) (Auto) 14.7 L, Monocytes (%) (Auto) 9.3 H, Eosinophils (%) (Auto) 3.3 H, Basophils (%) (Auto) 0.8, Neutrophils # (Auto) 7.8 H, Lymphocytes # (Auto) 1.6, Monocytes # (Auto) 1.0 H, Eosinophils # (Auto) 0.4, Basophils # (Auto) 0.1, Calcium Level 7.6 L, Aspartate Amino Transf (AST/SGOT) 44 H, Alanine Aminotransferase (ALT/SGPT) 15, Alkaline Phosphatase 121 H, Total Bilirubin 3.0 H, Total Protein 6.2 L, Albumin 1.6 L Microbiology Microbiology 01/14/19 Blood Culture - Preliminary, Resulted No growth after 24 hours . All specim... 01/14/19 Blood Culture - Preliminary, Resulted No growth after 24 hours . All specim... TONY LEYVA MD Jan 15, 2019 09:57
[2019-01-15] MEDS: MEROPENEM INJ 1 GM in APPROPRIATE DILUENT 1 EA IV SCH ×2 (12:15→23:13)
--- NOTE | 2019-01-15 13:22 | ECGEPIP ---
[facility] - ED Test Date: 2019-01-14 Pat Name: ZEYAD MATTA Department: Room: [place] [address] Gender: Male Carboy Filler: ALEX : 1965 Requested By: Mark Champagne Order Number: [id number] Reading MD: Mark Jimenez Measurements Intervals [place] Rate: 67 P: 52 PA: 151 QRS: 18 QRSD: 100 T: 13 QT: 450 QTc: 478 Interpretive Statements SINUS RHYTHM PROLONGED QT INTERVAL NSTTW ABNORMALITIES SIMILAR TO 10/13/18 Electronically Signed on 01-15-2019 13:21:54 EDT by Mark Jimenez
--- NOTE | 2019-01-15 15:20 | CCN ---
DATE: 01/14/2019 NOTE: I was originally contacted by Dr. Pérez secondary to Mr. Soto being intubated post endoscopy. During which, he had banding for a variceal bleed. When I was initially contacted, it was thought that he was going to be transferred to [facility] where his care had been done for liver cancer and cirrhosis. While this was being arranged, he was transferred up to the intensive care unit (ICU). [facility] declined to transfer him, stating there was nothing further that could be done. In the meantime, he was intubated but he did fine on a weaning trial and was ready to be extubated. There was not a clear reason for him to be intubated even if her were to be transferred. I contacted Dr. Pérez, who had no specific reason for him to remain intubated. He is at risk to rebleed but being on the ventilator is not going to prevent that and nor is there a time limit on when that risk would hold for. I then spoke to the hospitalist, Dr. Herrera, who had no plans to have him transferred to another facility. I have been told there is nothing more that can be done. As there are no plans for transfer (and again even if he were transferred he would not need to be intubated), we went on to a weaning trial. On a pressure support of 5 over a PEEP of 5, his rapid shallow breathing index was in the 20s which would predict success. His average tidal volume was in the 550 range. An arterial blood gas done on these settings was acceptable and showed a normal pH, pCO2 and acceptable oxygenation. He was following commands. He was therefore extubated. Post extubation, he is doing well. This was not an official consultation for assumed management but was for ventilator management in anticipation of transfer. That is no longer the case and the patient has been successfully extubated. I spoke with Dr. Herrera and there is no immediate need for the drafter (cad) electrical service and we will sign off for now but would be happy to be reconsulted if there were future issues. Total time spent coordinating this care was 75 minutes with multiple phone calls, evaluation as well as watching him for the 30 plus minute weaning trial.
[2019-01-15 16:27] LABS: HEMATOCRIT 29.9 % (42.0-52.0)
[2019-01-15] MEDS: PROMETHAZINE INJ 25 MG/ML VIAL (J2550) IV PRN (19:28)
[2019-01-15] MEDS: OCTREOTIDE ACETATE 1,200 MCG in NS 238.8 ML IV SCH (23:12)
[2019-01-16] VITALS (20 sets, daily range): BP systolic 97–132; BP diastolic 64–92
[2019-01-16] MEDS: PROMETHAZINE INJ 25 MG/ML VIAL (J2550) IV PRN (00:45)
[2019-01-16] MEDS: MORPHINE 4 MG/ML 1ML VIAL/SYRINGE (J2270) IV PRN ×4 (00:46→23:03)
[2019-01-16] MEDS: PANTOPRAZOLE SODIUM 40 MG in D5W 50 ML IV SCH ×4 (05:06→20:03)
[2019-01-16 05:24] LABS: BASO # 0.1 10^3/uL (0.0-0.2); EOS # 0.6 10^3/uL (0.0-0.50); EOS % 5.7 % (0.0-3.0); HEMATOCRIT 28.5 % (42.0-52.0); HEMOGLOBIN 9.5 g/dl (13.5-17.5); LYMPH # 2.5 10^3/uL (1.5-4.5); LYMPH % 22.8 % (24.0-44.0); MEAN CORPUSCULAR HEMOGLOBIN 30.2 pg (27.0-33.0); MEAN CORPUSCULAR HGB CONC 33.3 g/dl (32.0-36.5); MEAN CORPUSCULAR VOLUME 90.5 fl (80.0-96.0); MONO # 1.2 10^3/uL (0.0-0.8); NEUTROPHILS # 6.3 10^3/uL (1.8-7.7); NEUTROPHILS % 57.7 % (36.0-66.0); PLATELET COUNT, AUTOMATED 221 10^3/uL (150-450); RED BLOOD COUNT 3.15 10^6/uL (4.30-6.10); WHITE BLOOD COUNT 10.8 10^3/uL (4.0-10.0)
[2019-01-16 05:44] LABS: INR 1.59; PROTHROMBIN TIME 18.7 SECONDS (11.8-14.0)
[2019-01-16 05:54] LABS: ALBUMIN 1.4 GM/DL (3.2-5.2); BILIRUBIN,TOTAL 2.6 MG/DL (0.2-1.0); CALCIUM LEVEL 7.1 MG/DL (8.5-10.1); CREATININE FOR GFR 2.38 MG/DL (0.70-1.30); GLOMERULAR FILTRATION RATE 30.6 (>56); POTASSIUM SERUM 3.9 MEQ/L (3.5-5.1); TOTAL PROTEIN 6.3 GM/DL (6.4-8.2)
[2019-01-16] MEDS ORDERED: LIDOCAINE 2% INJ 100 MG/5 ML SDV (FOR ANES.) As Ordered ONE (06:32)
[2019-01-16] MEDS ORDERED: fentaNYL 100 MCG/2 ML INJECTION (J3010) As Ordered ONE (06:32)
[2019-01-16] MEDS ORDERED: dexameTHASONE 4 MG/ML 1ML VIAL (J1100) As Ordered ONE (06:32)
[2019-01-16] MEDS ORDERED: SUCCINYLCHOLINE 100 MG/5 ML SYRINGE (J0330) As Ordered ONE (06:32)
[2019-01-16] MEDS ORDERED: PROPOFOL 200 MG/20 ML VIAL As Ordered ONE (06:32)
[2019-01-16] MEDS ORDERED: ONDANSETRON 4MG/2ML VIAL (J2405) As Ordered ONE (06:32)
[2019-01-16] MEDS ORDERED: MIDAZOLAM INJ 2 MG/2 ML VIAL (J2250) As Ordered ONE (06:32)
[2019-01-16] MEDS ORDERED: PROPOFOL 500 MG/50 ML VIAL As Ordered ONE (06:33)
--- NOTE | 2019-01-16 06:56 | ROOR ---
Patient Name: Braulio Soto Procedure Date: 01/16/2019 5:55 AM Date of : 1965 Age: 53 Gender: Male Note Status: Finalized Procedure: Upper GI endoscopy + Hemoclips Indications: Active gastrointestinal bleeding Providers: Michael Pérez MD Referring MD: 1. No Referring Physician 1. No Referring Physician, Admin. Requesting Provider: Medicines: Monitored Anesthesia Care Complications: No immediate complications. Procedure: Pre-Anesthesia Assessment: - The heart rate, respiratory rate, oxygen saturations, blood pressure, adequacy of pulmonary ventilation, and response to care were monitored throughout the procedure. The Endoscope was introduced through the mouth, and advanced to the second part of duodenum. The Endoscope was introduced through the mouth, and advanced to the second part of duodenum. The upper GI endoscopy was accomplished without difficulty. The patient tolerated the procedure well. Findings: Grade III varices were found in the entire esophagus. To prevent bleeding post-intervention, three hemostatic clips were successfully placed (MR conditional). There was no bleeding at the end of the procedure. Hematin (altered blood/lwhdvy-yjizhv-xwke material) was found in the entire examined stomach. The exam of the duodenum was otherwise normal. Impression: - Grade III esophageal varices. Clips (MR conditional) were placed. - Hematin (altered blood/anaebq-kywdpr-hwye material) in the entire stomach. - No specimens collected. - The examination was otherwise normal. Recommendation: - Patient has a contact number available for emergencies. The signs and symptoms of potential delayed complications were discussed with the patient. Return to normal activities tomorrow. Written discharge instructions were provided to the patient. - Return patient to ICU for ongoing care. - The findings and recommendations were discussed with the patient. Michael Pérez MD Michael Pérez MD 01/16/2019 6:55:38 AM Electronically signed by Michael Pérez MD Number of Addenda: 0 Note Initiated On: 01/16/2019 5:55 AM Estimated Blood Loss: Estimated blood loss: none.
[2019-01-16] MEDS ORDERED: PERCOCET 5MG/325MG TAB PO PRN (07:15)
[2019-01-16] MEDS ORDERED: fentaNYL 100 MCG/2 ML INJECTION (J3010) IV PRN (07:15)
[2019-01-16] MEDS ORDERED: HYDROMORPHONE HCL 0.5 MG/ 0.5 ML SYRINGE (J1170 PER 1) IV PRN (07:15)
[2019-01-16] MEDS: NS 1,000 ML IV SCH ×3 (08:49→22:56)
[2019-01-16 10:00] LABS: HEMATOCRIT 30.5 % (42.0-52.0); HEMOGLOBIN 10.4 g/dl (13.5-17.5)
--- NOTE | 2019-01-16 11:35 | IPNPDOC ---
Subjective Date Seen The patient was seen on 01/16/19. Subjective Chief Complaint/HPI Patient vomited bright red blood, about 500 mL this morning, as were taken for repeat EGD by Dr. Pérez and reached clipping was done Eschen also receiving 1 unit of PRBC transfusion today General: Denies: ROS Unobtainable, Chills, Night Sweats, Fatigue, Malaise, Normal Appetite, Other Symptoms Constitutional: Denies: Chills, Fever, Malaise, Night Sweats, Weakness, Fatigue, Weight Loss, Lethargy, Other Eyes: Denies: Pain, Vision change, Conjunctivae inflammation, Eyelid i nflammation, Redness, Other ENT: Denies: Head Aches, Ear Pain, Dysphagia, Sinus Congestion, Post Nasal Drip, Sore Throat, Epistaxis, Other Symptoms Skin: Denies: Rash, Lesions, Jaundice, Bruising, Itching, Dry, Breakdown, Nail Changes, Other Pulmonary: Denies: Dyspnea, Cough, Pleuritic Chest Pain, Other Symptoms Cardiovascular: Denies: Chest Pain, Palpitations, Orthopnea, Paroxysmal Noc. Dyspnea, Edema, Lt Headedness, Other Symptoms Gastrointestinal: Denies: Nausea, Vomiting, Abdominal Pain, Diarrhea, Constipation, Melena, Hematochezia, Other Symptoms Endocrine: Denies: Polydipsia, Polyphagia, Polyuria, Heat Intolerance, Cold Intolerance, Other Endocrine Sx Musculoskeletal: Denies: Neck Pain, Back Pain, Shoulder Pain, Arm Pain, Hand Pain, Leg Pain, Foot Pain, Joint Pain, Muscle Pain, Spasms, Other Symptoms Neurological: Denies: Weakness, Numbness, Incoordination, Change in speech, Confusion, Seizures, Other Symptoms Objective Physical Examination General Exam: Positive: Alert, Cooperative, No Acute Distress, Other (cachectic) Eye Exam: Positive: PERRLA, Conjunctiva & lids normal, EOMI ENT Exam: Positive: Atraumatic, Mucous membr. moist/pink, Pharynx Normal Neck Exam: Positive: Supple; Negative: JVD, thyromegaly Chest Exam: Positive: Clear to auscultation, Normal air movement Heart Exam: Positive: Rate Normal, Regular Rhythm, Normal S1, Normal S2; Negative: Murmurs, Rubs Abdomen Exam: Positive: Normal bowel sounds, Soft, Tenderness, Other (distended) Extremity Exam: Positive: Normal pulses; Negative: Clubbing, Cyanosis, Edema Skin Exam: Positive: Nl turgor and temperature; Negative: Breakdown, Lesion Neuro Exam: Positive: Normal Gait, Normal Speech, Cranial Nerves 3-12 NL, Reflexes 2+ Psych Exam: Positive: Mental status NL, Mood NL, Oriented x 3 Assessment /Plan Problems (1) Esophageal varices with bleeding Status: Acute Problem Text: His H&H today is 9.5 and 28.5 He had a repeat EGD done with a repeat clipping of one clip which has slipped Patient receiving 1 unit of PRBC today\ I had tried [facility] in [place] yesterday to transfer patient for surgery care, but was declined from there. It today. I tried [facility] in [place] in [facility], but patient was again declined from both places as per [facility]. They will accept patient only if he is critically ill and unstable. Continue octreotide and Protonix I had a long discussion with patient and his family regarding DNR and DNI, but no decision has been made. Patient is still not accepting his a critical condition and is not willing for talking about hospice or comfort care. (2) Acute blood loss anemia Status: Acute Problem Text: Secondary to variceal bleed and blood loss during his procedure Patient receiving fourth unit of PRBC today Repeat CBC after transfusion (3) Alcoholic cirrhosis Status: Chronic Problem Text: End-stage liver cirrhosis , He receives a paracentesis frequently for ascites Continue present care (4) Hepatic cancer Status: Chronic Problem Text: Status post embolectomy Continue present care (5) Hepatic encephalopathy Status: Resolved Problem Text: Patient's baseline. Ammonia was high. He received electrical yest erday with improvement in his mental status Patient alert, oriented 3 today Repeat ammonia level again and is started. Lactulose as needed (6) Acute peritonitis Status: Acute Problem Text: Most likely secondary to repeated paracentesis Patient is responding very well to Merrem. His WBC count has decreased and he is afebrile Will continue meropenem for 7 days he might need repeat paracentesis on Saturday Plan/VTE VTE Prophylaxis Ordered?: Yes VTE Exclusion Mechanical Proph: N/A:VTE Prophy Ordered VTE Exclusion Pharmacological: Active Bleeding VS, I&O, 24H, Fishbone Vital Signs/I&O Vital Signs Date Time Temp Pulse Resp B/P (MAP) Pulse Ox O2 Delivery O2 Flow Rate FiO2 8/23/19 09:38 70 14 119/73 (88) 92 2.0 01/16/19 07:40 98.3 01/15/19 01:00 35 01/14/19 18:15 Aerosol Mask I&O- Last 24 Hours up to 6 AM 01/16/19 06:00 Intake Total 4630 ml Output Total 1250 ml Balance 3380 ml Laboratory Data 24H LABS Laboratory Tests 2 01/16/19 04:47: Immature Granulocyte % (Auto) 1.8, White Blood Count 10.8H, Red Blood Count 3.15L, Hemoglobin 9.5L, Hematocrit 28.5L, Mean Corpuscular Volume 90.5, Mean Corpuscular Hemoglobin 30.2, Mean Corpuscular Hemoglobin Concent 33.3, Red Cell Distribution Width 15.9H, Platelet Count 221, Neutrophils (%) (Auto) 57.7, Lymphocytes (%) (Auto) 22.8L, Monocytes (%) (Auto) 11.0H, Eosinophils (%) (Auto) 5.7H, Basophils (%) (Auto) 1.0, Neutrophils # (Auto) 6.3, Lymphocytes # (Auto) 2.5, Monocytes # (Auto) 1.2H, Eosinophils # (Auto) 0.6H, Basophils # (Auto) 0.1, Nucleated Red Blood Cells % (auto) 0.0, Prothrombin Time 18.7H, Prothromb Time International Ratio 1.59, Anion Gap 9, Glomerular Filtration Rate 30.6L, Blood Urea Nitrogen 46H, Creatinine 2.38H, Sodium Level 140, Potassium Level 3.9, Chloride Level 113H, Carbon Dioxide Level 18L, Calcium Level 7.1L, Aspartate Amino Transf (AST/SGOT) 46H, Alanine Aminotransferase (ALT/SGPT) 17, Alkaline Phosphatase 93, Total Bilirubin 2.6H, Total Protein 6.3L, Albumin 1.4L, Album in/Globulin Ratio 0.29L CBC/BMP Laboratory Tests 01/15/19 16:00 01/16/19 04:47 Red Blood Count 3.15 L, Mean Corpuscular Volume 90.5, Mean Corpuscular Hemoglobin 30.2, Mean Corpuscular Hemoglobin Concent 33.3, Red Cell Distribution Width 15.9 H, Neutrophils (%) (Auto) 57.7, Lymphocytes (%) (Auto) 22.8 L, Monocytes (%) (Auto) 11.0 H, Eosinophils (%) (Auto) 5.7 H, Basophils (%) (Auto) 1.0, Neutrophils # (Auto) 6.3, Lymphocytes # (Auto) 2.5, Monocytes # (Auto) 1.2 H, Eosinophils # (Auto) 0.6 H, Basophils # (Auto) 0.1, Calcium Level 7.1 L, Aspartate Amino Transf (AST/SGOT) 46 H, Alanine Aminotransferase (ALT/SGPT) 17, Alkaline Phosphatase 93, Total Bilirubin 2.6 H, Total Protein 6.3 L, Albumin 1.4 L 01/16/19 09:49 Microbiology Microbiology 01/14/19 Blood Culture - Preliminary, Resulted No Growth after 48 hours. All Specime... 01/14/19 Blood Culture - Preliminary, Resulted No Growth after 48 hours. All Specime... TONY LEYVA MD Jan 16, 2019 11:35
[2019-01-16] MEDS: MEROPENEM INJ 1 GM in APPROPRIATE DILUENT 1 EA IV SCH ×2 (12:13→22:56)
--- NOTE | 2019-01-16 14:18 | CR ---
DATE OF CONSULTATION: 01/14/2019 A 53-year white male admitted to [facility] ([facility]) with hematemesis. The patient is a 53-year-old white male with known history of alcohol-induced cirrhosis and a fairly recent diagnosis of hepatic cancer. The patient has known chronic kidney disease. He also has chronic ascites with weekly paracentesis in December of this year. The patient has had at least two embolization procedures at [facility] for ablation of the liver cancer. The purpose of this was to attempt to shrink the tumor to 50% of the size and then consider hepatic wedge resection of the cancer and then possibly put the patient on liver transplant list. The patient is about 10 days out from his second ablation, when he started having abdominal soreness and started having hematemesis and around noon on the day of admission. He has also been having black, tarry stools. No complaints of shortness of breath, chest pain, palpitations, fevers, night sweats, or shaking chills. MEDICATIONS: At home include Zofran for nausea and oxycodone as needed for pain. The patient also is on lactulose for hepatic encephalopathy. ALLERGIES: He is apparently allergic to PENICILLIN. PAST MEDICAL HISTORY: As above. FAMILY HISTORY Noncontributory to the above problem. SOCIAL HISTORY: Cigarettes negative. The patient denies alcohol. The patient states he has not had any alcohol since May of this year. REVIEW OF SYSTEMS: Noncontributory. PHYSICAL EXAMINATION: GENERAL: He is a well-developed, well-nourished white male in no obvious acute distress. Appears stated age. CHEST: Clear to auscultation. CARDIOVASCULAR: Showed a regular rhythm. No murmurs or gallops. Normal physiological split, S1, S2. ABDOMEN: Soft, nontender. No masses, guarding, or rebound. No hepatosplenomegaly. Bowel sounds positive. LABORATORY STUDIES: On admission showed a white count 14,400, hemoglobin and hematocrit were 8.7 and 25.7. The patient's blood count fell to 8.6 and 24.9. ANALYSIS: Hematemesis, unknown etiology. The patient with alcohol-induced cirrhosis. Plan will be to set patient up for upper endoscopy for possible banding of esophageal varices. The patient will be started on octreotide infusion with intravenous (IV) Protonix. The patient will be given packed cells and fresh frozen plasma as needed. PLAN: 1. Upper endoscopy with possible banding as soon as possible. 2. Blood transfusions plus fresh frozen plasma (FFP). 3. Octreotide. 4. Will consider a possible transfer back to [facility] if the patient is not able to be controlled adequately here for possible consideration of a post transjugular intrahepatic portosystemic shunt (TIPS) procedure. Our interventional radiologist is on vacation at this time.
[2019-01-16] MEDS: OCTREOTIDE ACETATE 1,200 MCG in NS 238.8 ML IV SCH (22:56)
[2019-01-17] VITALS (7 sets, daily range): BP systolic 102–112; BP diastolic 60–78
[2019-01-17] MEDS: PANTOPRAZOLE SODIUM 40 MG in D5W 50 ML IV SCH ×2 (00:47→04:52)
[2019-01-17] MEDS: MORPHINE 4 MG/ML 1ML VIAL/SYRINGE (J2270) IV PRN ×4 (02:57→22:10)
[2019-01-17 04:23] LABS: HEMATOCRIT 26.6 % (42.0-52.0); HEMOGLOBIN 8.9 g/dl (13.5-17.5); MEAN CORPUSCULAR HEMOGLOBIN 30.2 pg (27.0-33.0); MEAN CORPUSCULAR HGB CONC 33.5 g/dl (32.0-36.5); MEAN CORPUSCULAR VOLUME 90.2 fl (80.0-96.0); PLATELET COUNT, AUTOMATED 206 10^3/uL (150-450); RED BLOOD COUNT 2.95 10^6/uL (4.30-6.10)
[2019-01-17 04:35] LABS: INR 1.65; PROTHROMBIN TIME 19.3 SECONDS (11.8-14.0)
[2019-01-17 04:43] LABS: CALCIUM LEVEL 7.1 MG/DL (8.5-10.1); CREATININE FOR GFR 2.35 MG/DL (0.70-1.30); POTASSIUM SERUM 4.2 MEQ/L (3.5-5.1)
[2019-01-17] MEDS: PANTOPRAZOLE 40MG TAB (PROTONIX) PO SCH ×2 (09:45→20:00)
--- NOTE | 2019-01-17 10:27 | IPNPDOC ---
Subjective Date Seen The patient was seen on 01/17/19. Subjective Chief Complaint/HPI Pt is alert, oriented 3, in no distress. Once the as she is feeling hungry enough General: Denies: ROS Unobtainable, Chills, Night Sweats, Fatigue, Malaise, Normal Appetite, Other Symptoms Constitutional: Denies: Chills, Fever, Malaise, Night Sweats, Weakness, Fatigue, Weight Loss, Lethargy, Other Eyes: Denies: Pain, Vision change, Conjunctivae inflammation, Eyelid inflammati on, Redness, Other ENT: Denies: Head Aches, Ear Pain, Dysphagia, Sinus Congestion, Post Nasal Drip, Sore Throat, Epistaxis, Other Symptoms Skin: Denies: Rash, Lesions, Jaundice, Bruising, Itching, Dry, Breakdown, Nail Changes, Other Pulmonary: Denies: Dyspnea, Cough, Pleuritic Chest Pain, Other Symptoms Cardiovascular: Denies: Chest Pain, Palpitations, Orthopnea, Paroxysmal Noc. Dyspnea, Edema, Lt Headedness, Other Symptoms Gastrointestinal: Reports: Other Symptoms (distended abdomen with positive fluid thrill. No tenderness) Endocrine: Denies: Polydipsia, Polyphagia, Polyuria, Heat Intolerance, Cold Intolerance, Other Endocrine Sx Musculoskeletal: Denies: Neck Pain, Back Pain, Shoulder Pain, Arm Pain, Hand Pain, Leg Pain, Foot Pain, Joint Pain, Muscle Pain, Spasms, Other Symptoms Neurological: Denies: Weakness, Numbness, Incoordination, Change in speech, Confusion, Seizures, Other Symptoms Objective Physical Examination General Exam: Positive: Alert, Cooperative, No Acute Distress, Other (cachectic) Eye Exam: Positive: PERRLA, Conjunctiva & lids normal, EOMI ENT Exam: Positive: Atraumatic, Mucous membr. moist/pink, Pharynx Normal Neck Exam: Positive: Supple; Negative: JVD, thyromegaly Chest Exam: Positive: Clear to auscultation, Normal air movement Heart Exam: Positive: Rate Normal, Regular Rhythm, Normal S1, Normal S2; Negative: Murmurs, Rubs Abdomen Exam: Positive: Normal bowel sounds, Soft, Other (, distended abdomen with positive fluid thrill) Extremity Exam: Positive: Normal pulses; Negative: Clubbing, Cyanosis, Edema Skin Exam: Positive: Nl turgor and temperature; Negative: Breakdown, Lesion Neuro Exam: Positive: Normal Gait, Normal Speech, Cranial Nerves 3-12 NL, Reflexes 2+ Psych Exam: Positive: Mental status NL, Mood NL, Oriented x 3 Assessment /Plan Problems (1) Esophageal varices with bleeding Status: Acute Problem Text: H&H today is 8.9 and 26.6, platelets are 206 He had a repeat EGD done with a repeat clipping of one clip which has slipped Continue monitoring H&H. Will start patient on regular diet as tolerated Transferred to medical for [facility] floor as patient is clinically stable Possible discharge in a.m Follow up with [facility], has been recommended (2) Acute blood loss anemia Status: Acute Problem Text: Secondary to variceal bleed and blood loss during his procedure H&H stable after 4 units of PRBC transfusion Repeat labs in a.m. (3) Alcoholic cirrhosis Status: Chronic Problem Text: End-stage liver cirrhosis , He receives a paracentesis frequently for ascites Continue present care (4) Hepatic cancer Status: Chronic Problem Text: Status post embolectomy Continue present care (5) Hepatic encephalopathy Status: Resolved Problem Text: Patient's baseline. Ammonia was high. He received electrical yesterday with improvement in his mental status Patient alert, oriented 3 today Repeat ammonia level again and is started. Lactulose as needed (6) Acute peritonitis Status: Acute Problem Text: Most likely secondary to repeated paracentesis Patient is responding very well to Merrem. His WBC count has decreased and he is afebrile Will continue meropenem and then changed to by mouth once he is discharged home he might need repeat paracentesis on Saturday (7) Ascites Status: Chronic Problem Text: Patient gets repeated paracentesis done last paracentesis was d one about a few days ago and patient will again get present is done next Saturday Continued clinical observation and treatment Plan/VTE VTE Prophylaxis Ordered?: Yes VTE Exclusion Mechanical Proph: N/A:VTE Prophy Ordered VTE Exclusion Pharmacological: Active Bleeding VS, I&O, 24H, Fishbone Vital Signs/I&O Vital Signs Date Time Temp Pulse Resp B/P (MAP) Pulse Ox O2 Delivery O2 Flow Rate FiO2 01/17/19 08:00 98.4 73 12 105/69 (81) 95 01/16/19 09:38 2.0 01/15/19 01:00 35 01/14/19 18:15 Aerosol Mask I&O- Last 24 Hours up to 6 AM 01/17/19 06:00 Intake Total 3870 ml Balance 3870 ml Laboratory Data 24H LABS Laboratory Tests 2 01/17/19 04:02: Nucleated Red Blood Cells % (auto) 0.0, Prothrombin Time 19.3H, Prothromb Time International Ratio 1.65, Anion Gap 10, Glomerular Filtration Rate 31.0L, Blood Urea Nitrogen 47H, Creatinine 2.35H, Sodium Level 140, Potassium Level 4.2, Chloride Level 111H, Carbon Dioxide Level 19L, Calcium Level 7.1L CBC/BMP Laboratory Tests 01/17/19 04:02 Red Blood Count 2.95 L, Mean Corpuscular Volume 90.2, Mean Corpuscular Hemoglobin 30.2, Mean Corpuscular Hemoglobin Concent 33.5, Red Cell Distribution Width 15.9 H, Calcium Level 7.1 L Microbiology Microbiology 01/14/19 Blood Culture - Preliminary, Resulted No Growth after 72 hours. All specime... 01/14/19 Blood Culture - Preliminary, Resulted No Growth after 72 hours. All specime... TONY LEYVA MD Jan 17, 2019 10:27
[2019-01-17] MEDS: MEROPENEM INJ 1 GM in APPROPRIATE DILUENT 1 EA IV SCH ×2 (12:05→23:29)
[2019-01-17] MEDS: NS 1,000 ML IV SCH ×2 (14:42→23:27)
[2019-01-18] MEDS: MORPHINE 4 MG/ML 1ML VIAL/SYRINGE (J2270) IV PRN ×5 (01:43→23:49)
[2019-01-18 06:00] VITALS: BP 100/73
[2019-01-18 06:12] LABS: HEMATOCRIT 24.7 % (42.0-52.0); HEMOGLOBIN 8.4 g/dl (13.5-17.5); MEAN CORPUSCULAR HEMOGLOBIN 30.5 pg (27.0-33.0); MEAN CORPUSCULAR VOLUME 89.8 fl (80.0-96.0); PLATELET COUNT, AUTOMATED 196 10^3/uL (150-450); RED BLOOD COUNT 2.75 10^6/uL (4.30-6.10); WHITE BLOOD COUNT 11.7 10^3/uL (4.0-10.0)
[2019-01-18 06:48] LABS: ALBUMIN 1.5 GM/DL (3.2-5.2); BILIRUBIN,TOTAL 1.1 MG/DL (0.2-1.0); CALCIUM LEVEL 7.2 MG/DL (8.5-10.1); CREATININE FOR GFR 2.26 MG/DL (0.70-1.30); GLOMERULAR FILTRATION RATE 32.5 (>56); POTASSIUM SERUM 3.7 MEQ/L (3.5-5.1)
[2019-01-18] MEDS: PANTOPRAZOLE 40MG TAB (PROTONIX) PO SCH ×2 (09:07→21:44)
[2019-01-18] MEDS: NS 1,000 ML IV SCH (09:07)
--- NOTE | 2019-01-18 10:36 | IPNPDOC ---
Subjective Date Seen The patient was seen on 01/18/19. Subjective Chief Complaint/HPI Patient comfortable in no distress. No more GI bleed. General: Denies: ROS Unobtainable, Chills, Night Sweats, Fatigue, Malaise, Normal Appetite, Other Symptoms Constitutional: Denies: Chills, Fever, Malaise, Night Sweats, Weakness, Fatigue, Weight Loss, Lethargy, Other Eyes: Denies: Pain, Vision change, Conjunctivae inflammation, Eyelid inflammation, Redness, Other ENT: Denies: Head Aches, Ear Pain, Dysphagia, Sinus Congestion, Post Nasal Drip, Sore Throat, Epistaxis, Other Symptoms Skin: Denies: Rash, Lesions, Jaundice, Bruising, Itching, Dry, Breakdown, Nail Changes, Other Pulmonary: Denies: Dyspnea, Cough, Pleuritic Chest Pain, Other Symptoms Cardiovascular: Denies: Chest Pain, Palpitations, Orthopnea, Paroxysmal Noc. Dyspnea, Edema, Lt Headedness, Other Symptoms Gastrointestinal: Denies: Nausea, Vomiting, Abdominal Pain, Diarrhea, Constipation, Melena, Hematochezia, Other Symptoms Endocrine: Denies: Polydipsia, Polyphagia, Polyuria, Heat Intolerance, Cold Intolerance, Other Endocrine Sx Musculoskeletal: Denies: Neck Pain, Back Pain, Shoulder Pain, Arm Pain, Hand Pain, Leg Pain, Foot Pain, Joint Pain, Muscle Pain, Spasms, Other Symptoms Neurological: Denies: Weakness, Numbness, Incoordination, Change in speech, Confusion, Seizures, Other Symptoms Objective Physical Examination General Exam: Positive: Alert, Cooperative, No Acute Distress, Other (cachectic) Eye Exam: Positive: PERRLA, Conjunctiva & lids normal, EOMI ENT Exam: Positive: Atraumatic, Mucous membr. moist/pink, Pharynx Normal Neck Exam: Positive: Supple; Negative: JVD, thyromegaly Chest Exam: Positive: Clear to auscultation, Normal air movement Heart Exam: Positive: Rate Normal, Regular Rhythm, Normal S1, Normal S2; Negative: Murmurs, Rubs Abdomen Exam: Positive: Normal bowel sounds, Soft, Other (, distended abdomen with positive fluid thrill) Extremity Exam: Positive: Normal pulses; Negative: Clubbing, Cyanosis, Edema Skin Exam: Positive: Nl turgor and temperature; Negative: Breakdown, Lesion Neuro Exam: Positive: Normal Gait, Normal Speech, Cranial Nerves 3-12 NL, Reflexes 2+ Psych Exam: Positive: Mental status NL, Mood NL, Oriented x 3 Assessment /Plan Problems (1) Esophageal varices with bleeding Status: Acute Problem Text: H&H is stable at 8.4/24.7 and platelets of 196 Dr. Pérez will speak with interventional radiologist tomorrow for possibility of performing TIPS procedure before patient is discharged H&H in a.m. Patient was transferred to [facility] floor, patient is clinically stable Follow up with Health system, has been recommended (2) Acute blood loss anemia Status: Acute Problem Text: Secondary to variceal bleed and blood loss during his procedure H&H stable after 4 units of PRBC transfusion Repeat CBC daily (3) Alcoholic cirrhosis Status: Chronic Problem Text: End-stage liver cirrhosis , He receives a paracentesis frequently for ascites Continue present care (4) Hepatic cancer Status: Chronic Problem Text: Status post embolectomy Continue present care (5) Hepatic encephalopathy Status: Resolved Problem Text: Patient's baseline. Ammonia was high. He received electrical yesterday with improvement in his mental status Patient alert, oriented 3 today Repeat ammonia level again and is started. Lactulose as needed (6) Acute peritonitis Status: Acute Problem Text: Most likely secondary to repeated paracentesis Patient is responding very well to Merrem. His WBC count has decreased and he is afebrile Will continue meropenem and then changed to by mouth once he is discharged home he might need repeat paracentesis on Saturday (7) Ascites Status: Chronic Problem Text: Patient gets repeated paracentesis done last paracentesis was done about a few days ago and patient will again get present is done next Saturday Continued clinical observation and treatment Plan/VTE VTE Prophylaxis Ordered?: Yes VTE Exclusion Mechanical Proph: N/A:VTE Prophy Ordered VTE Exclusion Pharmacological: Active Bleeding VS, I&O, 24H, Fishbone Vital Signs/I&O Vital Signs Date Time Temp Pulse Resp B/P (MAP) Pulse Ox O2 Delivery O2 Flow Rate FiO2 01/18/19 06:00 97.8 75 16 100/73 (82) 95 01/16/19 09:38 2.0 01/15/19 01:00 35 01/14/19 18:15 Aerosol Mask I&O- Last 24 Hours up to 6 AM 01/18/19 06:00 Intake Total 2790 ml Output Total 675 ml Balance 2115 ml Laboratory Data 24H LABS Laboratory Tests 2 01/18/19 05:55: Nucleated Red Blood Cells % (auto) 0.0, Anion Gap 7L, Glomerular Filtration Rate 32.5L, Blood Urea Nitrogen 38H, Creatinine 2.26H, Sodium Level 142, Potassium Level 3.7, Chloride Level 115H, Carbon Dioxide Level 20L, Calcium Level 7.2L, Aspartate Amino Transf (AST/SGOT) 84H, Alanine Aminotransferase (ALT/SGPT) 24, Alkaline Phosphatase 139H, Total Bilirubin 1.1#H, Total Protein 6.0L, Albumin 1.5L, Albumin/Globulin Ratio 0.33L CBC/BMP Laboratory Tests 01/18/19 05:55 Red Blood Count 2.75 L, Mean Corpuscular Volume 89.8, Mean Corpuscular Hemoglobin 30.5, Mean Corpuscular Hemoglobin Concent 34.0, Red Cell Distribution Width 16.5 H, Calcium Level 7.2 L, Aspartate Amino Transf (AST/SGOT) 84 H, Alanine Aminotransferase (ALT/SGPT) 24, Alkaline Phosphatase 139 H, Total Bilirubin 1.1 #H, Total Protein 6.0 L, Albumin 1.5 L Microbiology Microbiology 01/14/19 Blood Culture - Preliminary, Resulted No Growth after 72 hours. All specime... 01/14/19 Blood Culture - Preliminary, Resulted No Growth after 72 hours. All specime... TONY LEYVA MD Jan 18, 2019 10:36
[2019-01-18] MEDS: MEROPENEM INJ 1 GM in APPROPRIATE DILUENT 1 EA IV SCH ×2 (12:27→23:35)
[2019-01-18 14:00] VITALS: BP 111/70
[2019-01-18] MEDS ORDERED: HYDROCORTISONE 1% OINTMENT 30GM TOP PRN (16:00)
[2019-01-18 22:00] VITALS: BP 109/75
[2019-01-19] MEDS: MORPHINE 4 MG/ML 1ML VIAL/SYRINGE (J2270) IV PRN ×2 (03:17→09:25)
[2019-01-19 06:00] VITALS: BP 108/73
[2019-01-19 09:08] LABS: HEMATOCRIT 27.2 % (42.0-52.0); HEMOGLOBIN 9.1 g/dl (13.5-17.5); MEAN CORPUSCULAR HEMOGLOBIN 31.6 pg (27.0-33.0); MEAN CORPUSCULAR HGB CONC 33.5 g/dl (32.0-36.5); MEAN CORPUSCULAR VOLUME 94.4 fl (80.0-96.0); PLATELET COUNT, AUTOMATED 224 10^3/uL (150-450); RED BLOOD COUNT 2.88 10^6/uL (4.30-6.10); WHITE BLOOD COUNT 10.9 10^3/uL (4.0-10.0)
--- NOTE | 2019-01-19 09:21 | CR.PDOC ---
General Date of Consultation: Jan 19, 2019 Referring Provider: Michael Pérez Consultation REASON FOR CONSULTATION/CHIEF COMPLAINT: Variceal bleeding. Cirrhosis. Refractory ascites. Portal hypertension. HISTORY OF PRESENT ILLNESS: 53 male with chronic kidney disease, prior history of alcohol abuse, cirrhosis and hepatocellular carcinoma, presented to the hospital with large-volume hematemesis and melena. Denies prior similar symptoms and has not received routine endoscopy in the past. He also has refractory ascites, spironolactone and Lasix were stopped due to renal failure. Patient gets regular large-volume paracentesis. Denies history of encephalopathy. Past month has not been taking lactulose and has noticed some memory issues. Never been on rifaximin. Denies alcohol for greater than 6 months. Patient is seen in [place] for hepatocellular carcinoma of the left hepatic lobe. This was treated with embolization twice per patient. Patient is not currently on a transplant list but has been evaluated by transplant surgery in [place]. ALLERGIES: Please see below. HOME MEDICATIONS: Please see below. PAST MEDICAL HISTORY: 1. Cirrhosis. 2. Hepatocellular carcinoma. 3. Chronic kidney disease. 4. Hernia. PAST SURGICAL HISTORY: HCC embolization. FAMILY HISTORY: No significant. SOCIAL HISTORY: Patient lives alone and is independent. Denies alcohol or smoking. Occasional marijuana use. REVIEW OF SYSTEMS: Otherwise negative. PHYSICAL EXAMINATION: VITAL SIGNS: Please see below. GENERAL APPEARANCE: No apparent distress. No tremors. HEENT: No scleral icterus. RESPIRATORY: Dull breath sounds bi basal. CARDIOVASCULAR: Systolic murmur. Normal rate. ABDOMEN: Mildly distended. Shifting dullness. Hernia. EXTREMITIES: Pitting edema to the thighs. NEUROLOGICAL: Alert and oriented. PSYCHIATRIC: Appropriate to circumstance. LABORATORY DATA: Please see below. MELD NA 20 I reviewed his most recent CT abdomen. The portal vein in patent. The tumor is in the left hepatic lobe. No large tumor in the right hepatic lobe. Ascites. ASSESSMENT/PLAN: 53 male with first episode of life-threatening variceal leading status post banding and refractory ascites, hepatorenal syndrome and intolerance to diuretics. Patient meets indications for a TIPS procedure however this is complicated by superimposed hepatorenal syndrome. We discussed the risks and benefits of the procedure including relief with portal hypertension, reducing risk of recurrent variceal bleeding and treating refractory ascites. We discussed the risks of encephalopathy, worsening liver/renal failure, bleeding and . Patient would like to proceed with the procedure, we will schedule the procedure under anesthesia. 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 Thank you for this referral. Vital Signs/I&O Vital Signs Date Time Temp Pulse Resp B/P (MAP) Pulse Ox O2 Delivery O2 Flow Rate FiO2 01/19/19 06:00 98.4 76 17 108/73 (85) 94 01/16/19 09:38 2.0 01/15/19 01:00 35 01/14/19 18:15 Aerosol Mask I&O- Last 24 Hours up to 6 AM 01/19/19 06:00 Intake Total 2480 ml Output Total 1750 ml Balance 730 ml Laboratory Data Labs 24H MELD NA 20 Microbiology Microbiology 01/14/19 Blood Culture - Final, Complete NO GROWTH AFTER 5 DAYS 01/14/19 Blood Culture - Final, Complete NO GROWTH AFTER 5 DAYS Allergies Coded Allergies: Penicillins (Verified Allergy, Unknown, 01/13/19) Home Medications Scheduled Lactulose (Lactulose) 10 Gm/15 Ml Solution, 30 ML PO BID, (Reported) Multivitamins (Child Chew Vitamin) 1 Each Tab.chew, 1 TAB PO DAILY, (Reported) Scheduled PRN Melatonin (Melatonin) 3 Mg Tablet, 6 MG PO QHS PRN for INSOMNIA, (Reported) Ondansetron HCl (Ondansetron HCl) 4 Mg Tablet, 4 MG PO TID PRN for NAUSEA, (Reported) Oxycodone HCl (Oxycodone HCl) 5 Mg Tablet, 5 MG PO Q8H PRN for PAIN, (Reported) SHABNAM MAYER MD Jan 19, 2019 09:21
[2019-01-19] MEDS: PANTOPRAZOLE 40MG TAB (PROTONIX) PO SCH (09:26)
[2019-01-19 09:35] LABS: CALCIUM LEVEL 7.4 MG/DL (8.5-10.1); CREATININE FOR GFR 2.09 MG/DL (0.70-1.30); GLOMERULAR FILTRATION RATE 35.5 (>56); POTASSIUM SERUM 3.8 MEQ/L (3.5-5.1)
--- NOTE | 2019-01-19 10:45 | IPNPDOC ---
Text Note Date of Service The patient was seen on 01/19/19. NOTE I discussed Mr. Soto with transplant hepatology Dr. Nielsen at [facility]. As they have him on a resection/potential transplant track for HCC they recommend holding off on TIPS for now as it can increase his chances of atypical metastasis. This would then remove him from the resection track. If patient became unstable with GI bleeding refractory to endoscopy, I will proceed with TIPS as life saving measure. Otherwise patient to follow up with GI for prophylactic banding. Thank you for this referral. VS,Fishbone, I+O VS, Fishbone, I+O Laboratory Tests 01/19/19 08:16 Red Blood Count 2.88 L, Mean Corpuscular Volume 94.4, Mean Corpuscular Hemoglobin 31.6, Mean Corpuscular Hemoglobin Concent 33.5, Red Cell Distribution Width 16.8 H, Calcium Level 7.4 L Vital Signs Date Time Temp Pulse Resp B/P (MAP) Pulse Ox O2 Delivery O2 Flow Rate FiO2 01/19/19 06:00 98.4 76 17 108/73 (85) 94 01/16/19 09:38 2.0 01/15/19 01:00 35 01/14/19 18:15 Aerosol Mask I&O- Last 24 Hours up to 6 AM 01/19/19 06:00 Intake Total 2480 ml Output Total 1750 ml Balance 730 ml SHABNAM MAYER MD Jan 19, 2019 10:45
== END 2019-01-19 12:34 | disposition home or self-care (01) | DRG 280 ==
LOC: M ED 21:36 → M ED INP 01-14 00:53 → M ICU 01-14 01:43 → M MSPAV 01-17 10:43
PROVIDERS: ADMIT Hospitalist; ATTEND Internal Medicine
PROC: 0W3P8ZZ Control Bleeding in Gastrointestinal Tract, Via Natural or Artificial Opening Endoscopic (ICD-10-PCS; principal; 2019-01-14 14:00)
PROC: 0W3P8ZZ Control Bleeding in Gastrointestinal Tract, Via Natural or Artificial Opening Endoscopic (ICD-10-PCS; 2019-01-16)
DX: K70.31 Alcoholic cirrhosis of liver with ascites (principal); I85.11 Secondary esophageal varices with bleeding; K72.90 Hepatic failure, unspecified without coma; K65.9 Peritonitis, unspecified; C22.8 Malignant neoplasm of liver, primary, unspecified as to type; D62 Acute posthemorrhagic anemia; N18.9 Chronic kidney disease, unspecified; F10.20 Alcohol dependence, uncomplicated; Z79.899 Other long term (current) drug therapy; Z88.0 Allergy status to penicillin

== ENCOUNTER 2019-01-19 20:43 | Emergency (ER) | payer OTHER ==
[~2019-01-19] VITALS: Ht 177.8 cm; Wt 65.9 kg
[2019-01-19 20:43] VITALS: BP 154/80
[~2019-01-19 20:43] MED LIST changes: +MELA3TAB41 PO; +ONDA-195 PO; +OXYC-517 PO; +VITACHTA PO
[2019-01-19] MEDS ORDERED: NS 1,000 ML IV ONE (21:30)
[2019-01-19] MEDS ORDERED: ONDANSETRON 4MG/2ML VIAL (J2405) IV ONE (21:30)
[2019-01-19 21:34] LABS: HEMATOCRIT 26.9 % (42.0-52.0); HEMOGLOBIN 9.1 g/dl (13.5-17.5); MEAN CORPUSCULAR HGB CONC 33.8 g/dl (32.0-36.5); MEAN CORPUSCULAR VOLUME 94.7 fl (80.0-96.0); PLATELET COUNT, AUTOMATED 209 10^3/uL (150-450); RED BLOOD COUNT 2.84 10^6/uL (4.30-6.10); WHITE BLOOD COUNT 10.3 10^3/uL (4.0-10.0)
[2019-01-19 21:48] LABS: INR 1.67; PROTHROMBIN TIME 19.4 SECONDS (11.8-14.0)
[2019-01-19 22:06] LABS: CALCIUM LEVEL 7.5 MG/DL (8.5-10.1); CREATININE FOR GFR 1.98 MG/DL (0.70-1.30); GLOMERULAR FILTRATION RATE 37.8 (>56)
== END 2019-01-19 22:03 | disposition left against medical advice (07) ==
LOC: M ED 20:43
DX: I85.01 Esophageal varices with bleeding (principal); K92.2 Gastrointestinal hemorrhage, unspecified; K74.60 Unspecified cirrhosis of liver; C22.9 Malignant neoplasm of liver, not specified as primary or secondary; Z79.899 Other long term (current) drug therapy; Z88.0 Allergy status to penicillin

== ENCOUNTER → 2019-11-09 | Outpatient (CLI) | payer OTHER ==
[~2019-11-09] MED LIST changes: -LACT10SO29 PO; +LACT20EL PO; -MELA3TAB41 PO; +MELA3TAB62 PO
[2019-11-09 12:59] LABS: BASO # 0.2 10^3/uL (0.0-0.2); BASO % 1.9 % (0.0-1.0); EOS # 1.5 10^3/uL (0.0-0.5); HEMATOCRIT 31.6 % (42.0-52.0); HEMOGLOBIN 10.4 g/dl (13.5-17.5); LYMPH # 1.2 10^3/uL (1.5-5.0); LYMPH % 14.4 % (24.0-44.0); MEAN CORPUSCULAR HEMOGLOBIN 30.3 pg (27.0-33.0); MEAN CORPUSCULAR HGB CONC 32.9 g/dl (32.0-36.5); MEAN CORPUSCULAR VOLUME 92.1 fl (80.0-96.0); MONO # 0.6 10^3/uL (0.0-0.8); MONO % 7.3 % (0.0-5.0); NEUTROPHILS # 4.6 10^3/uL (1.5-8.5); PLATELET COUNT, AUTOMATED 126 10^3/uL (150-450); RED BLOOD COUNT 3.43 10^6/uL (4.30-6.10)
[2019-11-09 13:41] LABS: ALBUMIN 3.6 GM/DL (3.2-5.2); BILIRUBIN,DIRECT 0.9 MG/DL (0.0-0.2); BILIRUBIN,TOTAL 1.8 MG/DL (0.2-1.0); PERCENT SATURATION 77.3 % (19.7-50.0); TOTAL PROTEIN 8.8 GM/DL (6.4-8.2)
[2019-11-09 13:47] LABS: PTH INTACT 131.8 PG/ML (18.5-88.0); TOTAL 25(OH) VITAMIN D 19.9 NG/ML (30.0-100.0)
== END ==
LOC: M LAB 11:41
DX: C22.0 Liver cell carcinoma (principal); K74.60 Unspecified cirrhosis of liver

== ENCOUNTER → 2019-11-18 | Outpatient (CLI) | payer OTHER ==
[2019-11-18 13:07] LABS: ALBUMIN 3.4 GM/DL (3.2-5.2); CALCIUM LEVEL 8.4 MG/DL (8.5-10.1); CREATININE FOR GFR 3.57 MG/DL (0.70-1.30); GLOMERULAR FILTRATION RATE 19.1 (>56); PHOSPHORUS LEVEL 3.8 MG/DL (2.5-4.9); POTASSIUM SERUM 4.6 MEQ/L (3.5-5.1)
== END ==
LOC: M LAB 11:46
DX: N17.9 Acute kidney failure, unspecified (principal); N18.9 Chronic kidney disease, unspecified

== ENCOUNTER 2020-01-11 10:00 | Inpatient (IN) | payer OTHER ==
[~2020-01-11] VITALS: Ht 177.8 cm; Wt 68.9 kg
[~2020-01-11 10:00] MED LIST changes: +MELA3TAB30 PO; -MELA3TAB62 PO
[2020-01-11] MEDS ORDERED: MORPHINE 4 MG/ML 1ML VIAL/SYRINGE (J2270) As Ordered ONE (10:32)
[2020-01-11] MEDS ORDERED: ONDANSETRON 4MG/2ML VIAL As Ordered ONE ×2 (10:32→19:59)
[2020-01-11] MEDS ORDERED: metroNIDAZOLE/NACL 500MG(5MG/ML) 100ML BAG (S0030) As Ordered ONE ×2 (12:43→23:52)
[2020-01-11] MEDS ORDERED: CIPROFLOXACIN/D5W 400 MG/200 ML BAG (J0744) As Ordered ONE ×2 (13:51→22:37)
[2020-01-11] MEDS ORDERED: LIDOCAINE 1% MDV 20ML VIAL As Ordered ONE (15:00)
[2020-01-11] MEDS ORDERED: MORPHINE 2 MG/ML 1ML VIAL (J2270) As Ordered ONE ×2 (19:59→22:38)
[2020-01-11] MEDS ORDERED: FLUCONAZOLE 200 MG/100 ML ONE (23:00)
[2020-01-12] MEDS ORDERED: MORPHINE 2 MG/ML 1ML VIAL (J2270) As Ordered ONE ×5 (01:03→15:24)
[2020-01-12] MEDS ORDERED: metroNIDAZOLE/NACL 500MG(5MG/ML) 100ML BAG (S0030) As Ordered ONE ×2 (06:00→15:24)
[2020-01-12] MEDS ORDERED: PANTOPRAZOLE 40MG VIAL (C9113 PER 1) As Ordered ONE (09:49)
[2020-01-12] MEDS ORDERED: GASTROGRAFIN SOLUTION 30ML (Q9963) As Ordered ONE (12:51)
[2020-01-12] MEDS ORDERED: ONDANSETRON 4MG/2ML VIAL IV PRN (13:00)
[2020-01-12 14:16] LABS: INR 1.32; PROTHROMBIN TIME 16.7 SECONDS (11.8-14.0)
[2020-01-12] MEDS ORDERED: diphenhydrAMINE CREAM 30GM TOP PRN (14:45)
[2020-01-12] MEDS: MORPHINE 2 MG/ML 1ML VIAL (J2270) IV PRN (20:39)
[2020-01-12] MEDS: NS 1,000 ML IV SCH (20:41)
[2020-01-12 22:00] VITALS: BP 118/69
[2020-01-12] MEDS ORDERED: CIPROFLOXACIN 400 MG in IV 1 EA IV SCH (22:00)
[2020-01-12] MEDS: metroNIDAZOLE 500 MG in IV 1 EA IV SCH (23:04)
[2020-01-13] MEDS ORDERED: FLUCONAZOLE 200 MG in IV 1 EA IV SCH ×2
[2020-01-13 06:00] VITALS: BP 109/68
[2020-01-13] MEDS: NS 1,000 ML IV SCH (06:15)
[2020-01-13] MEDS: metroNIDAZOLE 500 MG in IV 1 EA IV SCH (06:15)
[2020-01-13 07:15] LABS: INR 1.37; PROTHROMBIN TIME 17.2 SECONDS (11.8-14.0)
[2020-01-13 07:36] LABS: ALBUMIN 2.7 GM/DL (3.2-5.2); CALCIUM LEVEL 8.1 MG/DL (8.5-10.1); CREATININE FOR GFR 4.96 MG/DL (0.70-1.30); GLOMERULAR FILTRATION RATE 13.1 (>56); PHOSPHORUS LEVEL 5.2 MG/DL (2.5-4.9); POTASSIUM SERUM 3.9 MEQ/L (3.5-5.1)
[2020-01-13] MEDS ORDERED: PANTOPRAZOLE 40MG VIAL (C9113 PER 1) IV SCH (09:00)
[2020-01-13] MEDS: MORPHINE 2 MG/ML 1ML VIAL (J2270) IV PRN (09:01)
[2020-01-13] MEDS ORDERED: CIPR-249 PO (11:55)
[2020-01-13] MEDS ORDERED: METR-265 PO (11:55)
[2020-01-13] MEDS ORDERED: CIPR500T3 PO (12:21)
[2020-01-13] MEDS ORDERED: metroNIDAZOLE (FLAGYL) 500MG TABLET PO SCH (14:00)
--- NOTE | 2020-01-13 17:06 | DS.PDOC ---
Discharge Summary General Date of Admission Jan 11, 2020 at 20:55 Date of Discharge 01/13/2020 Discharge Summary PROCEDURES PERFORMED DURING STAY: abdominal abscess drain placed ADMITTING DIAGNOSES: 1.abdominal pain DISCHARGE DIAGNOSES: 1. Abdominal abscess s/p drain placement COMPLICATIONS/CHIEF COMPLAINT: Abdominal Pain For 2 Weeks. HISTORY OF PRESENT ILLNESS: 54 y.o M presented with cc of abdominal pain and was managed for abdominal abscess s/p drain and acute kidney injury likely prerenal HOSPITAL COURSE: patient presented with abdominal pain and found to have abscess. abscess was drained and patient will be sent home with drain. patient was advised to follow up with PCP and IR for drain removal once discharge subsides. He will be discharged on oral ciprofloxacin and metronidazole. Patient's presenting BRET improved significantly from 10 to 4.5, presuming baseline Cr to be around 3.37. Recommend PCP to follow up on Cr function DISCHARGE MEDICATIONS: Please see below. ALLERGIES: Please see below. PHYSICAL EXAMINATION ON DISCHARGE: VITAL SIGNS: Please see below. GENERAL: no signs of distress HEENT: normocephalic NECK: no masses CARDIOVASCULAR EXAMINATION: regular rate and rhythm RESPIRATORY EXAMINATION: no abnormalities on auscultation ABDOMINAL EXAMINATION: drain site clean, no tenderness, soft, bowl sounds present EXTREMITIES: no swelling SKIN: intact NEUROLOGICAL EXAMINATION: no focal deficits PSYCHIATRIC EXAMINATION: normal mood LABORATORY DATA: Please see below. Laboratory Tests 01/13/20 06:40 IMAGING: no new imaging PROGNOSIS: good ACTIVITY:as tolerated DIET: heart healthy DISCHARGE PLAN: home DISPOSITION: 01 Home, Self-Care. DISCHARGE INSTRUCTIONS: 1. f/u with PCP within one week. follow drain instructions ITEMS TO FOLLOWUP ON ON OUTPATIENT: 1. pcp for drain removal once drainage subsides DISCHARGE CONDITION: stable TIME SPENT ON DISCHARGE: greater than 30 minutes. Vital Signs/I&Os Vital Signs Date Time Temp Pulse Resp B/P (MAP) Pulse Ox O2 Delivery O2 Flow Rate FiO2 01/13/20 09:11 16 Room Air 01/13/20 06:00 98.5 74 109/68 (82) 98 I&O- Last 24 Hours up to 6 AM 01/13/20 06:00 Intake Total 1280 ml Balance 1280 ml Laboratory Data Labs 24H Laboratory Tests 2 01/13/20 06:40: Prothrombin Time 17.2H, Prothromb Time International Ratio 1.37, Anion Gap 9, Glomerular Filtration Rate 13.1L, Calcium Level 8.1L, Phosphorus Level 5.2H, Total Bilirubin 2.0H, Aspartate Amino Transf (AST/SGOT) 34, Alanine Aminotransferase (ALT/SGPT) 16, Alkaline Phosphatase 167H, Total Protein 7.0, Albumin 2.7L, Albumin/Globulin Ratio 0.6 CBC/BMP Laboratory Tests 01/13/20 06:40 Discharge Medications Scheduled Ciprofloxacin HCl (Ciprofloxacin HCl) 500 Mg Tablet, 1 TAB PO DAILY Metronidazole (Metronidazole) 500 Mg Tablet, 500 MG PO Q8H Allergies Coded Allergies: Penicillins (Verified Allergy, Intermediate, RASH, 01/12/20) cephalexin (Verified Adverse Reaction, Severe, KIDNEY FAILURE, 01/12/20) ARIANA MCCALL DO Jan 13, 2020 17:06
[2020-01-13] MEDS ORDERED: CIPROFLOXACIN 500MG TABLET PO SCH (21:00)
[2020-01-16 23:08] LABS: ALBUMIN 2.2 GM/DL (3.2-5.2); BILIRUBIN,TOTAL 1.8 MG/DL (0.2-1.0); CALCIUM LEVEL 8.1 MG/DL (8.5-10.1); CREATININE FOR GFR 5.12 MG/DL (0.70-1.30); GLOMERULAR FILTRATION RATE 12.6 (>56); MAGNESIUM LEVEL 2.2 MG/DL (1.8-2.4); POTASSIUM SERUM 4.1 MEQ/L (3.5-5.1); TOTAL PROTEIN 6.5 GM/DL (6.4-8.2)
--- NOTE | 2020-02-17 09:28 | REP ---
GARY: 01/11/2020 10:35:00 am DOCTOR: [id number] RADIOLOGY NOTE ULTRASOUND-GUIDED ABSCESS DRAIN: The procedure was performed under the direct supervision of Dr. Rolon. HISTORY: The patient has a history of a large quantity of intraperitoneal fluid along with pneumoperitoneum seen on a previous CT scan performed earlier today. PROCEDURE: The risks and benefits of the procedure were explained to the patient and informed consent was obtained. The fluid was localized using ultrasound guidance. The skin was prepped and draped in a sterile fashion. 1% lidocaine was used as a local anesthetic. Using ultrasound guidance, a 10-Amharic Skater APDL catheter was inserted using trocar technique. 3000 cc of cloudy yellow/green colored fluid was withdrawn with a sample sent to the lab for analysis. The catheter was affixed to the skin and a sterile dressing was applied. The catheter was connected to a gravity drainage bag. The patient tolerated the procedure well and there were no immediate complications. After the appropriate amount of monitored convalescence, the patient was discharged from the department. CATA
--- NOTE | 2020-02-17 09:29 | REP ---
GASTROGRAFIN UPPER GI The procedure was performed under the direct supervision of Dr. Rolon. The images were reviewed with Dr. Rolon. The builder's labourer film shows no organomegaly or pathological masses. The intestinal gas pattern is nonspecific. There are bowel sutures noted in the mid abdomen. There is a drainage catheter seen in the left abdomen. A 50/50 solution of Gastrografin was instilled in the erect and prone oblique positions. The oral and pharyngeal states of deglutition are unremarkable. During esophageal transport, there are tertiary waves demonstrated. There is no evidence of esophagitis, stricture, mucosal ring, or hiatal hernia. Gastroesophageal reflux is not demonstrated on this examination. The stomach is grossly normal. The rugal folds are smooth and regular. There is no evidence of gastritis, neoplasm, or ulcer disease. In the postbulbar duodenum there are thickened folds, which likely represents duodenitis. There is no saran ulcer identified. There is no evidence of extravasation. The visualized portion of the proximal small bowel appears normal in course and caliber. There are two duodenal diverticula identified. IMPRESSION: * Tertiary waves. * In the postbulbar duodenum there are thickened folds, which may represent duodenitis. There is no saran ulcer identified. There is no extravasation identified. There are two duodenal diverticula identified. 2.8 minutes of fluoroscopy time was utilized for this procedure. MTDD
[2020-02-23 11:02] LABS: APPEARANCE, BODY FLUID HAZY (CLEAR); PERITONEAL FL COLOR YELLOW (COLORLESS); SOURCE, BODY FLUID PERITONEAL
[2020-02-24 16:14] LABS: HEMATOCRIT 34.3 % (42.0-52.0); HEMOGLOBIN 11.7 g/dl (13.5-17.5); MEAN CORPUSCULAR HEMOGLOBIN 31.6 pg (27.0-33.0); MEAN CORPUSCULAR HGB CONC 34.1 g/dl (32.0-36.5); MEAN CORPUSCULAR VOLUME 92.7 fl (80.0-96.0); PLATELET COUNT, AUTOMATED 326 10^3/uL (150-450)
[2020-02-24 16:15] LABS: LYMPHOCYTES 8 % (16-44); NEUTROPHILS 87 % (28-66)
[2020-02-24 16:16] LABS: MONOCYTES 3 % (0-5); PLATELET ESTIMATE NORMAL (NORMAL)
--- NOTE | 2020-03-04 11:47 | IPN ---
DATE: 01/13/2020 SUBJECTIVE: Patient was seen and examined at the bedside today morning. He is afebrile, hemodynamically stable. He denies any active complaints. He got the upper gastrointestinal (GI) series imaging done yesterday. Result is not available in the system at this time. Renal function is slowly improving. Creatinine is down to 4.9 today. He continues to be on intravenous (IV) fluid hydration. OBJECTIVE: Vital signs: Temperature is 98.5 degrees Fahrenheit, blood pressure 109/68, pulse is 74, respiratory rate of 18, saturating 98% on room air. Intake and output: Urine output recorded is 720 mL. Weight in the bed scale was 68.9 kg yesterday. PHYSICAL EXAMINATION: GENERAL: Patient is awake, alert, oriented times three, lying in bed in no apparent distress. HEAD AND NECK: Extraocular muscles intact. Pupils equally round and reactive to light. Mucous membranes are moist. Neck is supple. There is no jugular venous distention (JVD). CARDIOVASCULAR: S1, S2, regular rate. No edema of the bilateral lower extremities. RESPIRATORY: Chest is clear to auscultation bilaterally. Bilateral equal air entry. No rales or rhonchi. ABDOMEN: Mildly tender to deep palpation with some guarding, there is an umbilical hernia noted. Patient has a drain in the left side of the abdomen with light brown-colored pus in the bag noted. GENITOURINARY: Bladder is not palpable. MUSCULOSKELETAL: No clubbing or cyanosis. Pulses are 2+. CENTRAL NERVOUS SYSTEM: No focal deficit. Power is 5/5 in all extremities. LABORATORY REVIEW: BMP shows sodium 138, potassium 3.9, chloride 108, bicarbonate 21, BUN 86, creatinine 4.9, calcium 8.1, phosphorus 5.2. Total bilirubin is 2, AST 34, ALT 16, alkaline phosphatase is 167. CURRENT INPATIENT MEDICATIONS: Patient's medications were all reviewed by myself. He is on IV Cipro and IV Flagyl, which have been stopped, and he has been started on oral Cipro and Flagyl. I have also stopped the IV fluid hydration as well. No other significant change in the medications today as compared with yesterday. ASSESSMENT AND PLAN: 1. Acute renal failure superimposed on chronic kidney disease. Patient most likely has a baseline chronic kidney disease (CKD), stage IV. He had acute renal failure because of abdominal abscess. He was given IV albumin yesterday, and he has been adequately hydrated. Patient reports that his baseline creatinine is close to 5. He follows up with nephrology as outpatient. Electrolytes and acid- base status are within the acceptable range. There is no urgent need of hemodialysis at this time. 2. Abdominal abscess. Final culture report is pending. Patient is currently getting Cipro and Flagyl. He is allergic to cephalosporins and penicillins. 3. Liver cirrhosis. History of transjugular intrahepatic portosystemic shunt (TIPS) procedure. Currently he is compensated. He is being worked up for listing for liver transplant at [facility]. DISPOSITION: Patient is optimized from nephrology standpoint to be discharged home. He already has an appointment with his operation specialist as outpatient at [facility]. CATA
[2020-04-03 16:12] LABS: VENOUS BASE EXCESS -7.3 (-2.0-2.0); VENOUS HCO3 19.3 MEQ/L (23.0-27.0); VENOUS O2 SATURATION 62.6 % (60.0-80.0); VENOUS PARTIAL PRESSURE CO2 43.5 mmHg (38.0-50.0); VENOUS PARTIAL PRESSURE O2 39.9 mmHg (30.0-50.0); VENOUS PH 7.266 UNITS (7.330-7.430); VENOUS STANDARD HCO3 17.9 MEQ/L; VENOUS TOTAL CO2 20.7 MEQ/L (24.0-28.0)
[2020-04-03 16:16] LABS: ALBUMIN 2.4 GM/DL (3.2-5.2); BILIRUBIN,TOTAL 2.2 MG/DL (0.2-1.0); CALCIUM LEVEL 8.3 MG/DL (8.5-10.1); CREATININE FOR GFR 5.82 MG/DL (0.70-1.30); GLOMERULAR FILTRATION RATE 10.8 (>56); POTASSIUM SERUM 3.9 MEQ/L (3.5-5.1); TOTAL PROTEIN 7.3 GM/DL (6.4-8.2)
== END 2020-01-13 14:00 | disposition home or self-care (01) | DRG 248 ==
LOC: M ED 10:00 → M MS5PR 20:55
PROVIDERS: ADMIT Internal Medicine Nephrology; ATTEND Internal Medicine Nephrology
PROC: 0W9G30Z Drainage of Peritoneal Cavity with Drainage Device, Percutaneous Approach (ICD-10-PCS; principal; 2020-01-11)
DX: K65.1 Peritoneal abscess (principal); N17.9 Acute kidney failure, unspecified; K70.30 Alcoholic cirrhosis of liver without ascites; K42.9 Umbilical hernia without obstruction or gangrene; N18.9 Chronic kidney disease, unspecified; Z88.0 Allergy status to penicillin; Z79.899 Other long term (current) drug therapy; Z88.1 Allergy status to other antibiotic agents